=== PATIENT | female | born 1945 | race Two or more races ===

== ENCOUNTER 2025-01-26 22:13 | Inpatient (IN) | payer MEDICARE, MEDICAID ==
[~2025-01-26] VITALS: Ht 172.7 cm; Wt 46.9 kg
--- NOTE | 2025-01-26 23:22 | ED.PDOC ---
History of Present Illness HPI Comments 79 y/o F is BIBA for c/c nonradiating, lower abdominal pain, with associated nausea and vomiting. Patient reports history of symptoms since 0800, this morning. Onset reported to have been atraumatic, unprovoked, and gradual. Patient states on calling her PCP regarding symptoms and being prescribed Zofran, which she reports on taking with no relief or improvement towards it. Pain is a 10/10 in severity. Patient denies having any bloody or bilious vomitus, diarrhea, constipation, urinary symptoms, fever, chills, or further associated symptoms. 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 Past Medical History PAST MEDICAL HISTORY: DM (type II), HTN Surgical History: Denies all surgeries MARKETING REPORTING ANALYST History: Denies all MARKETING REPORTING ANALYST Hx Family History Family History: Unknown Social History Smoker: Non-Smoker Alcohol: Denies ETOH Use Drugs: Denies Drug Use Lives In: Home All Other Systems: Reviewed and Negative (Comprehensive systems review obtained and negative except for what is stated in the HPI.) Physical Exam General Appearance: No Apparent Distress, Thin HEENT: Normal ENT Inspection, Pharynx Normal, TMs Normal Neck: Full Range of Motion, Non-Tender, Normal, Normal Inspection Respiratory: Chest Non-Tender, Lungs Clear, No Accessory Muscle Use, No Respiratory Distress, Normal Breath Sounds Cardiovascular: No Edema, No JVD, No Murmur, No Gallop, Normal Peripheral Pulses, Regular Rate/Rhythm Breast Exam: Deferred Gastrointestinal: No Organomegaly, No Pulsatile Mass, Normal Bowel Sounds, Soft, Tenderness (diffused, lower abdomen region ) Genitalia: Deferred Pelvic: Deferred Rectal: Deferred Extremities: No calf tenderness, Normal capillary refill, Normal inspection, Normal range of motion, Non-tender, No pedal edema Musculoskeletal : Apperance: Normal Neurologic: Alert, manager lsw II-XII nml as Tested, No Motor Deficits, Normal Affect, Normal Mood, No Sensory Deficits Cerebellar Function: Normal Reflexes: Normal Skin: Dry, Normal Color, Warm Lymphatic: No Adenopathy Was a procedure done? Was a procedure done?: No Differential Dx Considerations may include: Bowel obstruction, cystitis, PID, diverticulitis, musculoskeletal pain, spoiled food, viral syndrome, among others X-Ray, Labs, Meds, VS Vital Signs Date Time Temp Pulse Resp B/P (MAP) Pulse Ox O2 Delivery O2 Flow Rate FiO2 01/27/25 00:17 99.3 74 14 151/75 (100) 94 99.3 01/26/25 22:16 98.5 76 16 174/70 (104) 95 98.5 Lab Test 01/26/25 23:10 Range/Units White Blood Count 11.4 H 4.4-10.8 10^3/uL Red Blood Count 4.99 4.0-5.20 10^6/uL Hemoglobin 15.4 12.2-16.2 g/dL Hematocrit 43.8 36.0-46.0 % Mean Corpuscular Volume 87.8 80.0-100.0 fL Mean Corpuscular Hemoglobin 30.9 28.0-32.0 pg Mean Corpuscular Hemoglobin Concent 35.2 32.0-36.0 g/dL Red Cell Distribution Width 13.9 11.8-14.3 % Platelet Count 261 140-450 10^3/uL Mean Platelet Volume 9.4 6.9-10.8 fL Neutrophils (%) (Auto) 86.5 H 37.0-80.0 % Lymphocytes (%) (Auto) 8.0 L 10.0-50.0 % Monocytes (%) (Auto) 5.0 0.0-12.0 % Eosinophils (%) (Auto) 0.0 0.0-7.0 % Basophils (%) (Auto) 0.5 0.0-2.0 % Neutrophils # (Auto) 9.8 H 1.6-8.6 10 ^3/uL Lymphocytes # (Auto) 0.9 0.4-5.4 10 ^3/uL Monocytes # (Auto) 0.6 0-1.3 10 ^3/uL Eosinophils # (Auto) 0 0-0.8 10 ^3/uL Basophils # (Auto) 0.1 0-0.2 10 ^3/uL Nucleated Red Blood Cells 0.0 % Sodium Level 137 136-145 mmol/L Potassium Level 3.9 3.5-5.1 mmol/L Chloride Level 93 L 98-107 mmol/L Carbon Dioxide Level 32 H 20-31 mmol/L Anion Gap 12 5-15 Blood Urea Nitrogen 23 9-23 mg/dL Creatinine 0.78 0.550-1.02 mg/dL Glomerular Filtration Rate Calc 76 >90 mL/min BUN/Creatinine Ratio 29.5 H 10.0-20.0 Serum Glucose 269 H 74-106 mg/dL Calcium Level 10.5 H 8.7-10.4 mg/dL Total Bilirubin 0.7 0.2-1.0 mg/dL Aspartate Amino Transferase (AST) 22 13-40 U/L Alanine Aminotransferase (ALT) < 9 7-40 U/L Alkaline Phosphatase 113 46-116 U/L Total Protein 7.6 5.7-8.2 g/dL Albumin 5.1 H 3.2-4.8 g/dL Lipase 36 12-53 U/L X-Ray, Labs, Meds, VS Comment CT abdomen pelvis shows small bowel obstruction Patient will be admitted for small-bowel obstruction, Order placed for intermittent suction Patient placed NPO Recommend general surgery consult in the morning Time of 1ST Reevaluation: 23:00 Reevaluation 1ST: Unchanged Patient Education/Counseling: Diagnosis, Treatment Family Education/Counseling: No Family Present Additional Information Previous visits reviewed: N/A The following tests were ordered, and results were reviewed by me: CT abdomen /pelvis w/o contrast, UA, CMP, CBC, lipase Additional Information was gathered from interviewing the following independent historians: EMS I reviewed and agreed with the following test results read by other providers: CT abdomen/pelvis w/o contrast I discussed treatment and results with medical personnel and: patient SEPSIS Sepsis Screen Date sepsis recognized/suspect: Jan 26, 2025 Time Sepsis recognized/suspect: 2215 Recent Procedure: No On Antibiotic Therapy: No Respiratory Rate >20: No Heart Rate >90: No Temp<36 C (96.8 F) or >38.3 C: No SBP <90 or MAP <65 mmHG: No New Acute Mental Status Change: No Is the patient on CPAP, BIPAP,: No Physician Orders Urinalysis (01/26/25 22:40) Ct Ab Pel Wo Con-No Oral Or Iv (01/26/25 22:40) Vital Signs Date Time Temp Pulse Resp B/P (MAP) Pulse Ox O2 Delivery O2 Flow Rate FiO2 01/27/25 00:17 99.3 74 14 151/75 (100) 94 99.3 01/26/25 22:16 98.5 76 16 174/70 (104) 95 98.5 Laboratory Tests Test 01/26/25 23:10 White Blood Count 11.4 10^3/uL (4.4-10.8) H Departure 1 Departure Time of Disposition: 01:16 Impression: Primary Impression: Small bowel obstruction Disposition: ADMITTED INPATIENT Condition: Fair Discharged With: Self Critical Care Note Critical Care Time?: No Stability Stability form required: No Heart Score Heart Score: Heart Score Response (Comments) Value History N/A 0 EKG N/A 0 Age N/A 0 Risk Factors N/A 0 Troponin N/A 0 Total 0 I personally scribed for KEITH ANDREA ([email or web address]) on 01/26/25 at 23:22. Electronically submitted by Rodney Barrett ([email or web address]). KEITH ANDREA Jan 26, 2025 23:22
--- NOTE | 2025-01-26 23:28 | DVH ---
Exam: CT CT AB PEL WO CON-NO ORAL OR IV History: abd pain Comparison Study: None TECHNIQUE: Multidetector CT of the abdomen was performed from lung bases to pubic symphysis. Imaging was performed without IV contrast. Axial, coronal and sagittal multiplanar reformats were obtained fr om the axial data set by the technologist. Radiation Dose Information: Dose-length product is 279.99 mGy*cm FINDINGS: Limited sections of the lung bases demonstrate no focal pulmonary mass. The liver, spleen, pancreas demonstrate no acute findings. Right adrenal gland nodule measuring 2.1 x 1.5 cm. The left adrenal gland is unremarkable. The gallbladder is contains calcified gallstones with question mild gallbladder wall thickening. The stomach is unremarkable. Dilated small bowel loops measuring up to 3.2 cm with scattered fluid air levels. No definite transit ion point is identified although possibly within the right hemiabdomen. Stool is noted within the col on although not distended. Overall, findings suggestive of moderate small bowel obstruction. The appendix is not clearly identified, although there are no secondary signs of appendicitis. No colonic obstruction. Bilateral kidneys are unremarkable. No hydronephrosis. The urinary bladder is distended. No significant lymphadenopathy. No free air or free fluid. The aorta and IVC demonstrate no acute findings. Mild dilation of the distal abdominal aorta up to 2. 5 cm. Extensive atherosclerosis of the abdominal vasculature. Visualized osseous structures demonstrate no acute abnormality. Extensive multilevel degenerative francesco nges of the lumbar spine. IMPRESSION: 1. Moderate small-bowel obstruction without clear identifiable transition point although possibly wit hin the right hemiabdomen. 2. The gallbladder is contains calcified gallstones with question mild gallbladder wall thickening ; consider right upper quadrant ultrasound if there is concern for acute cholecystitis. 3. Right adrenal gland nodule measuring 2.1 x 1.5 cm.
[2025-01-26 23:29] LABS: Hematocrit 43.8 % (36.0-46.0); Hemoglobin 15.4 g/dL (12.2-16.2); Mean Corpuscular Hemoglobin 30.9 pg (28.0-32.0); Mean Corpuscular Volume 87.8 fL (80.0-100.0); Nucleated Red Blood Cells % 0.0 %
[2025-01-26 23:46] LABS: Alkaline Phosphatase 113 U/L (46-116); Anion Gap 12 (5-15); BUN/Creatinine Ratio 29.5 (10.0-20.0); Bilirubin, Total 0.7 mg/dL (0.2-1.0); Blood Urea Nitrogen 23 mg/dL (9-23); Lipase 36 U/L (12-53); Potassium 3.9 mmol/L (3.5-5.1); Sodium 137 mmol/L (136-145); Total Protein 7.6 g/dL (5.7-8.2)
[2025-01-26 23:51] LABS: Alanine Aminotransferase < 9 U/L (7-40); Albumin 5.1 g/dL (3.2-4.8); Calcium 10.5 mg/dL (8.7-10.4); Carbon Dioxide 32 mmol/L (20-31); Chloride 93 mmol/L (98-107); Glucose 269 mg/dL (74-106)
[2025-01-27 01:47] LABS: Urine Protein, UAD 1+ (Negative)
[2025-01-27 02:00] VITALS: PULSE 77; RESP 12; O2SAT 96
[2025-01-27] MEDS: hydrALAZINE HCL 20 MG/ML VL IV ONE (02:26)
--- NOTE | 2025-01-27 03:19 | DVHHP2 ---
History of Present Illness History of Present Illness Patient is 79 years old female with past medical history of hypertension, diabetes mellitus type 2 came with a complaint of abdominal pain. As per patient she has been having abdominal pain started 2 days before, gradual onset, burning, crampy, 10/10, intermittent, no aggravating factor. Patient also endorsed nausea and vomiting several times, watery, no blood. Patient reported she had bowel movement yesterday. On further inquiry patient also reported dysuria for last 2 days. Patient denied any fever, chest pain, shortness of breath, acute joint pain or swelling. Initial lab workup revealed leukocytosis with WBC 11.4, neutrophil 86.5, blood sugar 269, lipase 36, urinalysis revealed 3+ leukocyte esterase, WBC 42. CT abdomen and pelvis revealed- Moderate small- bowel obstruction without clear identifiable transition point although possibly within the right hemiabdomen. The gallbladder is contains calcified gallstones with question mild gallbladder wall thickening ; consider right upper quadrant ultrasound if there is concern for acute cholecystitis. Right adrenal gland nodule measuring 2.1 x 1.5 cm. Past Medical History Hypertension, diabetes mellitus type 2 Past Surgical History None Past Social History Denies smoking/alcoholism/drug abuse, lives with son Review of Systems Review of Systems Allergy-PCN Patient was seen today at the bedside. Cardiovascular- deny acute chest pain or shortness of breath or cough or palpitation Respiratory denies cough or short of breath or wheezing Musculoskeletal-denies acute joint swelling or tenderness or redness Neurological- denies acute dysarthria, dysphagia, change in vision Psychiatry- denies depression or SI or HI Skin- denies acute rash or purpura Allergies: Coded Allergies: Penicillins (Verified Allergy, Unknown, 01/26/25) Exam Vital Signs Vital Signs Date Time Temp Pulse Resp B/P (MAP) Pulse Ox O2 Delivery O2 Flow Rate FiO2 01/27/25 02:26 197/84 01/27/25 02:00 98.6 77 12 96 98.6 01/27/25 02:00 Room Air* 0 21 Exam General examination- awake, alert, conversant HEENT- PEERLA, no acute nasal discharge Cardiovascular- S1-S2 audible, rate and rhythm regular, no murmur Respiratory- CTAB, no wheeze or rhonchi Gastrointestinal-soft, tender upper abdomen, bowel sound+. Nondistended Musculoskeletal-no acute joint swelling or tenderness or redness Lower extremity- leg edema Neurological- cranial nerves intact, no acute dysarthria or dysphagia Psychiatry- denies depression or SI or HI Skin- no acute rash or purpura Labs/Xrays Labs Test 01/26/25 23:59 01/26/25 23:10 Range/Units Urine Color Yellow Yellow Urine Clarity Clear Clear Urine pH 6.5 5.0-9.0 Urine Specific Parker 1.036 H 1.001-1.035 Urine Protein 1+ H Negative Urine Ketones 2+ H Negative Urine Blood Negative Negative /uL Urine Nitrite Negative Negative Urine Bilirubin Negative Negative Urine Urobilinogen Normal Negative mg/dL Urine Leukocyte Esterase 3+ Negative /uL Urine RBC 8 0 - 4 /hpf Urine Microscopic WBC 42 H 0-5 /HPF Urine Squamous Epithelial Cells Few <5 /hpf Urine Bacteria None seen None Seen /hpf Urine Hyaline Casts Mod 0 - 2 /lpf Urine Mucus Few None Seen Urine Glucose 4+ H Normal mg/dL White Blood Count 11.4 H 4.4-10.8 10^3/uL Red Blood Count 4.99 4.0-5.20 10^6/uL Hemoglobin 15.4 12.2-16.2 g/dL Hematocrit 43.8 36.0-46.0 % Mean Corpuscular Volume 87.8 80.0-100.0 fL Mean Corpuscular Hemoglobin 30.9 28.0-32.0 pg Mean Corpuscular Hemoglobin Concent 35.2 32.0-36.0 g/dL Red Cell Distribution Width 13.9 11.8-14.3 % Platelet Count 261 140-450 10^3/uL Mean Platelet Volume 9.4 6.9-10.8 fL Neutrophils (%) (Auto) 86.5 H 37.0-80.0 % Lymphocytes (%) (Auto) 8.0 L 10.0-50.0 % Monocytes (%) (Auto) 5.0 0.0-12.0 % Eosinophils (%) (Auto) 0.0 0.0-7.0 % Basophils (%) (Auto) 0.5 0.0-2.0 % Neutrophils # (Auto) 9.8 H 1.6-8.6 10 ^3/uL Lymphocytes # (Auto) 0.9 0.4-5.4 10 ^3/uL Monocytes # (Auto) 0.6 0-1.3 10 ^3/uL Eosinophils # (Auto) 0 0-0.8 10 ^3/uL Basophils # (Auto) 0.1 0-0.2 10 ^3/uL Nucleated Red Blood Cells 0.0 % Sodium Level 137 136-145 mmol/L Potassium Level 3.9 3.5-5.1 mmol/L Chloride Level 93 L 98-107 mmol/L Carbon Dioxide Level 32 H 20-31 mmol/L Anion Gap 12 5-15 Blood Urea Nitrogen 23 9-23 mg/dL Creatinine 0.78 0.550-1.02 mg/dL Glomerular Filtration Rate Calc 76 >90 mL/min BUN/Creatinine Ratio 29.5 H 10.0-20.0 Serum Glucose 269 H 74-106 mg/dL Calcium Level 10.5 H 8.7-10.4 mg/dL Total Bilirubin 0.7 0.2-1.0 mg/dL Aspartate Amino Transferase (AST) 22 13-40 U/L Alanine Aminotransferase (ALT) < 9 7-40 U/L Alkaline Phosphatase 113 46-116 U/L Total Protein 7.6 5.7-8.2 g/dL Albumin 5.1 H 3.2-4.8 g/dL Lipase 36 12-53 U/L SEPSIS Sepsis Screen Date sepsis recognized/suspect: Jan 27, 2025 Time Sepsis recognized/suspect: 232 Recent Procedure: No On Antibiotic Therapy: No Respiratory Rate >20: No Heart Rate >90: No Temp<36 C (96.8 F) or >38.3 C: No SBP <90 or MAP <65 mmHG: No New Acute Mental Status Change: No Is the patient on CPAP, BIPAP,: No Physician Orders Ct Ab Pel Wo Con-No Oral Or Iv (01/26/25 22:40) Ng To Lis (01/27/25 02:40) * Surgical Consult (01/27/25 ) Admit (01/27/25 03:17) 0.9% Ns 1000 Ml (01/27/25 03:30) Ondansetron Hcl (Zofran) (01/27/25 03:30) Vital Signs Date Time Temp Pulse Resp B/P (MAP) Pulse Ox O2 Delivery O2 Flow Rate FiO2 01/27/25 02:26 197/84 01/27/25 02:00 98.6 77 12 202/86 (124) 96 98.6 01/27/25 02:00 77 12 96 Room Air* 0 21 01/27/25 00:17 99.3 74 14 151/75 (100) 94 99.3 01/26/25 22:16 98.5 76 16 174/70 (104) 95 98.5 Laboratory Tests Test 01/26/25 23:10 White Blood Count 11.4 10^3/uL (4.4-10.8) H Medications Medications Dose Ordered Sig/Cody Route Start Time Stop Time Status Last Admin Dose Admin Hydralazine HCl 10 mg ONCE ONCE IV 01/27/25 02:30 01/27/25 02:31 DC 01/27/25 02:26 10 MG Assessment/Plan Assessment/Plan Assessment plan # Intractable abdominal pain likely due to small bowel obstruction, rule out acute cholecystitis/pancreatitis/gastritis # Small-bowel obstruction # intractable nausea and vomiting -lipase 36 -CT abdomen pelvis revealed-Moderate small-bowel obstruction without clear identifiable transition point although possibly within the right hemiabdomen. -NPO until further order -continue IV normal saline as prescribed -continue iv ceftriaxone and iv metronidazole as prescribed -pending surgery consult -ultrasound of the liver- Cholelithiasis with distended gallbladder. No sonographic evidence for acute cholecystitis. -nasogastric suction #Acute complicated cystitis -urinalysis revealed leukocyte esterase 3+, WBC 42 -continue IV antibiotic ceftriaxone -pending urine culture, blood culture #Uncontrolled hypertension -continue IV hydralazine PRN as prescribed -monitor blood pressure # Diabetes mellitus type 2 with hyperglycemia -hemoglobin A1c-7.2 -insulin NPO sliding scale # right renal nodule -follow up outpatient with primary care physician NPO until further order Goals of care, Code status full code; discussed with >15 minutes PUD prophylaxis: Pantoprazole DVT prophylaxis: Heparin Plan discussed with Dr. Colón , nursing staff, Total time spent on patient evaluation, chart review, assessment and plan, discussion discussion >35 minutes Plan discussed with: Patient, Other (RN) My Orders Orders - DREA HICKMAN RESIDENT Procedure Category Date Status Time Admit ADMIT 01/27/25 Verified 03:17 0.9% Ns 1000 Ml PHA 01/27/25 Verified 03:30 Ondansetron Hcl PHA 01/27/25 Verified (Zofran) 03:30 Date of Service: Jan 27, 2025 Billing Provider: JET COLÓN MD Common Visit Codes: 79696-PLEWIOR INP/OBS CARE (HIGH) Secondary Visit Codes: 48113-PIZHQIHO CARE PLAN 30 MINUTES DREA HICKMAN RESIDENT Jan 27, 2025 03:19
[2025-01-27] MEDS ORDERED: PANTOPRAZOLE 40 MG/10 ML VIAL INJ IV ONE (03:30)
[2025-01-27] MEDS ORDERED: SODIUM CHLORIDE 0.9% 1,000 ML IV ONE (03:30)
[2025-01-27] MEDS ORDERED: KETOROLAC TROMETH 30 MG/ML 1ML VIAL IV PRN (03:30)
[2025-01-27] MEDS ORDERED: cefTRIAXone 1GM/50ML D5W 50 ML IV ONE (03:30)
[2025-01-27] MEDS: PANTOPRAZOLE 40 MG/10 ML VIAL INJ IV ONE (03:58)
[2025-01-27] MEDS: SODIUM CHLORIDE 0.9% 1,000 ML IV ONE (03:58)
[2025-01-27] MEDS: cefTRIAXone 1GM/50ML D5W 50 ML IV ONE (03:59)
[2025-01-27] MEDS: ONDANSETRON HCL 4 MG/2 ML VIAL IV PRN (04:13)
[2025-01-27] MEDS: ONDANSETRON HCL 4 MG/2 ML VIAL ONE (04:16)
--- NOTE | 2025-01-27 04:48 | DVH ---
CHEST RADIOGRAPH Indication: NG PLACEMENT Technique: Single frontal view of the chest was obtained COMPARISON: None FINDINGS: Lines and Tubes: Enteric catheter courses below the level of the diaphragm and terminates within the left upper quadrant, within the gastric lumen. Lungs: Clear Pleura: No effusion. No pneumothorax. Cardiomediastinal contours: Unremarkable Bones: Unremarkable IMPRESSION: 1. No acute disease. 2. Enteric catheter as above.
[2025-01-27] MEDS: SODIUM CHLORIDE 0.9% 1,000 ML IV SCH (04:56)
[2025-01-27] MEDS ORDERED: DEXTROSE (50%) 50ML SYRG IV PRN (05:30)
[2025-01-27] MEDS: ACCU-CHEK COMFORT CURVE STRIP VI SCH (05:38)
[2025-01-27] MEDS: MAGNESIUM SULFATE 1GM/100ML 100 ML IV ONE (05:47)
[2025-01-27] MEDS: InsuLIN REG 1unit/0.01ml Soln (100units/ml) SC SCH (05:49)
[2025-01-27 06:48] LABS: Hematocrit 42.4 % (36.0-46.0); Hemoglobin 14.8 g/dL (12.2-16.2); Mean Corpuscular Hemoglobin 30.8 pg (28.0-32.0); Mean Corpuscular Volume 88.3 fL (80.0-100.0); Nucleated Red Blood Cells % 0.0 %
[2025-01-27 07:02] LABS: Albumin 4.5 g/dL (3.2-4.8); Alkaline Phosphatase 98 U/L (46-116); Anion Gap 12 (5-15); BUN/Creatinine Ratio 29.0 (10.0-20.0); Bilirubin, Total 0.6 mg/dL (0.2-1.0); Blood Urea Nitrogen 20 mg/dL (9-23); Calcium 9.9 mg/dL (8.7-10.4); Magnesium 1.9 mg/dL (1.6-2.6); Sodium 140 mmol/L (136-145); Total Protein 6.9 g/dL (5.7-8.2)
[2025-01-27 07:07] LABS: Alanine Aminotransferase < 9 U/L (7-40); Carbon Dioxide 32 mmol/L (20-31); Chloride 96 mmol/L (98-107); Glucose 229 mg/dL (74-106); Potassium 3.2 mmol/L (3.5-5.1)
[2025-01-27 07:30] VITALS: PULSE 75; RESP 17; O2SAT 96
--- NOTE | 2025-01-27 07:54 | DVH ---
CLINICAL INFORMATION: Abdominal pain. TECHNIQUE: Grayscale sonographic imaging of the right upper quadrant of the abdomen was performed, a ssisted by color Doppler techniques. COMPARISON: CT dated 01/27/2025. FINDINGS: The gallbladder wall measures 2.6 mm in thickness, within normal limits. Gallbladder is distended. There are shadowing gallstones in the gallbladder, with the largest measuring up to 2.5 cm . Negative reported sonographic Crews's sign. The common bile duct measures 4.7 mm in diameter, wit hin normal limits. The liver is normal in size and echotexture. No focal lesions. Trace amount of fluid in Morison's amrita ch between the right hepatic lobe and right kidney. The pancreas is obscured by bowel gas. The right kidney measures 10.4 cm. There is no hydronephrosis. Right renal cortical echogenicity a nd cortical thickness are within normal limits. IMPRESSION: 1. Cholelithiasis with distended gallbladder. No sonographic evidence for acute cholecystitis. Correl ate with clinical findings. 2. Additional findings as described above.
[2025-01-27] MEDS: POTASSIUM CHL 20MEQ/100ML 100 ML IV SCH (08:53)
[2025-01-27] MEDS ORDERED: cefTRIAXone 1GM/50ML D5W 50 ML IV SCH (09:00)
[2025-01-27] MEDS: cefTRIAXone 1GM/50ML D5W 50 ML IV SCH (09:28)
[2025-01-27] MEDS: INSULIN LANTUS (GLARGINE) 1 /0.01ml (100units/ml) SC SCH (09:37)
[2025-01-27] MEDS ORDERED: PANTOPRAZOLE 40 MG/10 ML VIAL INJ IV SCH (10:00)
[2025-01-27] MEDS ORDERED: HEPARIN SODIUM (PORCINE) 5000 UNITS/ML 1ML VIAL SC SCH (10:00)
[2025-01-27] MEDS: PANTOPRAZOLE 40 MG/10 ML VIAL INJ IV SCH (10:15)
[2025-01-27] MEDS: HEPARIN SODIUM (PORCINE) 5000 UNITS/ML 1ML VIAL SC SCH (10:17)
[2025-01-27] MEDS: GASTROGRAFIN 120 ML SOL ONE (13:04)
--- NOTE | 2025-01-27 14:10 | DVHINCON2 ---
Date of service: Jan 27, 2025 Reason for Consultation small bowel obstruction History of Present Illness HPI 79 year old female presented to the ER with abdominal pain. Per CT small moderated bowel obstruction. Patient complaint of abdominal pain associated with vomiting. Last bowel movement yesterday, passing gas, She states she vomited earlier today. Past Medical History Cardiac: HTN Pulmonary: No pertinent Hx Central Nervous System: No pertinent Hx GI: No pertinent Hx Hemotology/Oncology: No pertinent Hx Hepatobiliary: No pertinent Hx Psychiatric: No pertinent Hx Musculoskeletal: No pertinent Hx Rheumotologic: No pertinent Hx Infectious Disease: No peritnent Hx ENT: No pertinent Hx Renal/: No pertinent Hx Dermatology: No pertinent Hx Others Diabetes Smoker: No Hx (Negative) Alocohol: None Drugs: None Lives with: With family Review of Systems Constitutional: No symptom reported Ears, Nose, & Throat: No symptom reported Eyes: No symptom reported Pulmonary/Respiratory: No symptom reported Cardiovascular: No symptom reported Gastrointestinal: No symptom reported Genitourinary: No symptom reported Musculoskeletal: No symptom reported Skin: No symptom reported Psychiatric: No symptom reported Endocrine: No symptom reported Hemotologic/Lymphatic: No symptom reported H&P Exam Vital Signs Vital Signs Date Time Temp Pulse Resp B/P (MAP) Pulse Ox O2 Delivery O2 Flow Rate FiO2 01/27/25 13:16 Nasal Cannula* 2 28 01/27/25 12:00 98.6 88 20 138/75 (96) 97 98.6 General Appeara: Well developed, Well nourished Head Exam: Normal inspection Nasal Exam: Normal inspection Mouth: Normal Inspection Abdominal Pain Onset Location: 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 Exam: Normal hearing, Normal speech Appearance: Appropriate appearance Labs/Xrays Labs Test 01/27/25 11:58 01/27/25 08:54 01/27/25 05:59 01/27/25 04:42 Range/Units POC Glucose 146 H 70-106 mg/dl Lipase 43 12-53 U/L White Blood Count 10.7 4.4-10.8 10^3/uL Red Blood Count 4.80 4.0-5.20 10^6/uL Hemoglobin 14.8 12.2-16.2 g/dL Hematocrit 42.4 36.0-46.0 % Mean Corpuscular Volume 88.3 80.0-100.0 fL Mean Corpuscular Hemoglobin 30.8 28.0-32.0 pg Mean Corpuscular Hemoglobin Concent 34.8 32.0-36.0 g/dL Red Cell Distribution Width 13.8 11.8-14.3 % Platelet Count 253 140-450 10^3/uL Mean Platelet Volume 9.6 6.9-10.8 fL Neutrophils (%) (Auto) 88.2 H 37.0-80.0 % Lymphocytes (%) (Auto) 6.4 L 10.0-50.0 % Monocytes (%) (Auto) 5.2 0.0-12.0 % Eosinophils (%) (Auto) 0.0 0.0-7.0 % Basophils (%) (Auto) 0.2 0.0-2.0 % Neutrophils # (Auto) 9.4 H 1.6-8.6 10 ^3/uL Lymphocytes # (Auto) 0.7 0.4-5.4 10 ^3/uL Monocytes # (Auto) 0.6 0-1.3 10 ^3/uL Eosinophils # (Auto) 0 0-0.8 10 ^3/uL Basophils # (Auto) 0 0-0.2 10 ^3/uL Nucleated Red Blood Cells 0.0 % Sodium Level 140 136-145 mmol/L Potassium Level 3.2 L 3.5-5.1 mmol/L Chloride Level 96 L 98-107 mmol/L Carbon Dioxide Level 32 H 20-31 mmol/L Anion Gap 12 5-15 Blood Urea Nitrogen 20 9-23 mg/dL Creatinine 0.69 0.550-1.02 mg/dL Glomerular Filtration Rate Calc 87 >90 mL/min BUN/Creatinine Ratio 29.0 H 10.0-20.0 Serum Glucose 229 H 74-106 mg/dL Lactic Acid Level 1.9 0.4-2.0 mmol/L Calcium Level 9.9 8.7-10.4 mg/dL Magnesium Level 1.9 1.6-2.6 mg/dL Total Bilirubin 0.6 0.2-1.0 mg/dL Aspartate Amino Transferase (AST) 20 13-40 U/L Alanine Aminotransferase (ALT) < 9 7-40 U/L Alkaline Phosphatase 98 46-116 U/L Total Protein 6.9 5.7-8.2 g/dL Albumin 4.5 3.2-4.8 g/dL Thyroid Stimulating Hormone (TSH) 2.12 0.55-4.78 uIU/mL Test 01/26/25 23:59 01/26/25 23:10 Range/Units Urine Color Yellow Yellow Urine Clarity Clear Clear Urine pH 6.5 5.0-9.0 Urine Specific [place] 1.036 H 1.001-1.035 Urine Protein 1+ H Negative Urine Ketones 2+ H Negative Urine Blood Negative Negative /uL Urine Nitrite Negative Negative Urine Bilirubin Negative Negative Urine Urobilinogen Normal Negative mg/dL Urine Leukocyte Esterase 3+ Negative /uL Urine RBC 8 0 - 4 /hpf Urine Microscopic WBC 42 H 0-5 /HPF Urine Squamous Epithelial Cells Few <5 /hpf Urine Bacteria None seen None Seen /hpf Urine Hyaline Casts Mod 0 - 2 /lpf Urine Mucus Few None Seen Urine Glucose 4+ H Normal mg/dL Hemoglobin A1c 7.2 H <5.7 % A1C Vitamin D 25-Hydroxy 76.0 30.0-100 ng/mL Folic Acid 31.95 >5.38 ng/mL Assessment/Plan Problem List: (1) Small bowel obstruction Plan patient complaint of abdominal pain , abdomen soft , tender to palpation , non tender ruq denies nausea and vomiting , notes and labs reviewed discussed with Dr. Harmon Plan: NPO NGT to LCS await Small bowel series Gastrografin Plan discussed with: Patient, Other (Dr. Harmon) Visit Coding Surgery Date of Service if different f: Jan 27, 2025 Billing Provider: FILOMENA HARMON MD Surgery Visit Codes: 13824 - INP CONSULT <110 MIN BETHANY MORTON BOLT MAN Jan 27, 2025 14:10
[2025-01-27] MEDS: KETOROLAC TROMETH 30 MG/ML 1ML VIAL IV PRN (15:33)
[2025-01-27] MEDS: hydrALAZINE HCL 20 MG/ML VL IV PRN (15:41)
--- NOTE | 2025-01-27 16:33 | DVHPNRES ---
Progress Note Date Seen: Jan 27, 2025 Resident Creating Document: MADI LIAO RESIDENT Medical Necessity Reason Pt with a Central, PICC or Fol: No Subjective Review of Systems Patient is 79 years old female with past medical history of hypertension, diabetes mellitus type 2 came with a complaint of abdominal pain. As per patient she has been having abdominal pain started 2 days before, gradual onset, burning, crampy, 10/10, intermittent, no aggravating factor. Patient also endorsed nausea and vomiting several times, watery, no blood. Patient reported she had bowel movement yesterday. On further inquiry patient also reported dysuria for last 2 days. Patient denied any fever, chest pain, shortness of breath, acute joint pain or swelling. Initial lab workup revealed leukocytosis with WBC 11.4, neutrophil 86.5, blood sugar 269, lipase 36, urinalysis revealed 3+ leukocyte esterase, WBC 42. CT abdomen and pelvis revealed- Moderate small- bowel obstruction without clear identifiable transition point although possibly within the right hemiabdomen. The gallbladder is contains calcified gallstones with question mild gallbladder wall thickening ; consider right upper quadrant ultrasound if there is concern for acute cholecystitis. Right adrenal gland nodule measuring 2.1 x 1.5 cm. Past Medical History Hypertension, diabetes mellitus type 2 Past Surgical History None Past Social History Denies smoking/alcoholism/drug abuse, lives with son 01/25 interval events: The patient reports her upper abdominal pain improved since yesterday. Reports having urinary frequency urgency and burning sensation. He denies any chest pain, fever shortness of breath or any other complaints at this time. Review of systems: The patient was seen and examined at the bedside. Patient is reveals abdominal pain and urinary symptoms. Rest of the ROS is negative. Objective vital signs Vital Sign Date Time Temp Pulse Resp B/P (MAP) Pulse Ox O2 Delivery O2 Flow Rate FiO2 01/27/25 15:41 167/84 01/27/25 14:00 98.6 81 16 97 98.6 01/27/25 13:16 Nasal Cannula* 2 28 Total Intake and Output 01/26/25 01/26/25 01/27/25 15:00 23:00 07:00 Intake Total 1270 ml Output Total 50 ml 350 ml Balance -50 ml 920 ml medications Current Medications Medications Dose Ordered Sig/Cody Route Start Time Stop Time Status Last Admin Dose Admin Sodium Chloride 1,000 ml @ 120 mls/hr Q8H20M IV 01/27/25 03:30 01/27/25 11:55 120 MLS/HR Ondansetron HCl 4 mg Q4HP PRN IV 01/27/25 03:30 01/27/25 04:13 4 MG Hydralazine HCl 10 mg Q6HP PRN IV 01/27/25 03:30 01/27/25 15:41 10 MG Pantoprazole Sodium 40 mg DAILY IV 01/27/25 10:00 01/27/25 10:15 40 MG Ketorolac Tromethamine 15 mg Q6HPRN PRN IV 01/27/25 03:45 02/01/25 03:29 01/27/25 15:33 15 MG Ceftriaxone Sodium 50 ml @ 100 mls/hr DAILY@09 IV 01/27/25 09:00 01/27/25 09:28 100 MLS/HR Heparin Sodium (Porcine) 5,000 units Q12HR SC 01/27/25 10:00 01/27/25 10:17 5,000 UNITS Diagnostic Test (Pha) 1 strip Q6HR 01/27/25 06:00 01/27/25 12:02 1 STRIP Insulin Human Regular Q6HR SC 01/27/25 06:00 01/27/25 12:01 2 UNITS Dextrose 50 ml UD PRN IV 01/27/25 05:30 Metronidazole 100 ml @ 100 mls/hr Q8HR IV 01/27/25 13:00 01/27/25 14:27 100 MLS/HR Insulin Glargine 10 units QAM SC 01/27/25 09:00 01/27/25 09:37 10 UNITS Examination General Appearance: NG tube with intermittent suction in place. Alert, Oriented X3, Cooperative, Mild distress HEENT: Atraumatic, Mucous membranes moist/pink Respiratory: Clear to auscultation, Normal air movement, No added sounds Cardiovascular: Regular rate, Normal S1, Normal S2, No murmurs Abdominal/ : No bowel sounds, Soft, no distention, no tenderness Extremities: No edema, Normal pulses, No tenderness/swelling Skin: No Significant rash, except past surgical scars Neuro: Normal speech, sensorimotor deficits none Psych/Mental Status: Mental status NL, Mood NL Nurse was there as trauma doctor during examination laboratory and microbiology Laboratory Tests 01/27/25 05:59 Test 01/27/25 05:59 Range/Units Serum Glucose 229 H 74-106 mg/dL Labs and/or images reviewed: Labs reviewed by me, Image(s) reviewed by me Problem List/Assessment/Plan Problem List/Assessment/Plan # Intractable abdominal pain likely due to small bowel obstruction, # Cholelithiasis rule out acute cholecystitis # Small-bowel obstruction -lipase 36 -CT abdomen pelvis revealed-Moderate small-bowel obstruction without clear identifiable transition point although possibly within the right hemiabdomen. 2. The gallbladder is contains calcified gallstones with question mild gallbladder wall thickening -ultrasound RUQ showed cholelithiasis with distended gallbladder but no sonographic evidence for acute cholecystitis -NPO until further order -continue IV normal saline as prescribed -continue iv ceftriaxone and iv metronidazole as prescribed -surgery consult was done: NG tube low continuous suction device, -Small-bowel series Gastrografin ordered, results pending -ultrasound of the liver- Cholelithiasis with distended gallbladder. No sonographic evidence for acute cholecystitis. -nasogastric suction #Acute complicated cystitis -urinalysis revealed leukocyte esterase 3+, WBC 42 -continue IV antibiotic ceftriaxone -pending urine culture, blood culture #Uncontrolled hypertension -continue IV hydralazine PRN as prescribed -monitor blood pressure # Diabetes mellitus type 2 with hyperglycemia -hemoglobin A1c-7.2 -insulin NPO sliding scale # right renal nodule -follow up outpatient with primary care physician NPO until further order PUD prophylaxis: Pantoprazole DVT prophylaxis: Heparin Goals of care, Code status full code; discussed with >15 minutes Case discussed with Dr. Rubi, patient and nurse Plan discussed with: Patient, Other (RN) My Orders My Orders Orders - MADI LIAO Procedure Category Date Status Time Small Bowel Series-W XY 01/27/25 Logged Gastrogra 08:54 Insulin Lantus PHA 01/27/25 In Process (Glargine) (Lantus) 09:00 Date of Service: Jan 27, 2025 Billing Provider: MONIK RUBI MD Common Visit Codes: NOT BILLABLE MADI LIAO Jan 27, 2025 16:33 HECTOR MALAGON Jan 27, 2025 17:08 MONIK RUBI MD Jan 27, 2025 21:53
--- NOTE | 2025-01-27 20:22 | DVH ---
Procedure: XY SMALL BOWEL SERIES-W GASTROGRA Reason for study/Clinical History: SBO Comparison Study: None Technique: Single contrast small bowel series performed. FINDINGS/IMPRESSION: Initial litigation coordinator view of the abdomen and pelvis demonstrates dilated small bowel loops. At 5 hours after administration, contrast has not reached the colon, consistent with small-bowel obstruction. There i s demineralization of the bones. There is no supine evidence of pneumoperitoneum.
[2025-01-27 21:09] LABS: Chloride 101 mmol/L (98-107); Potassium 4.1 mmol/L (3.5-5.1); Sodium 142 mmol/L (136-145)
[2025-01-27 21:10] LABS: Anion Gap 11 (5-15); Carbon Dioxide 30 mmol/L (20-31)
[2025-01-27 21:15] LABS: BUN/Creatinine Ratio 33.3 (10.0-20.0); Calcium 11.1 mg/dL (8.7-10.4)
[2025-01-27 21:19] LABS: Blood Urea Nitrogen 26 mg/dL (9-23); Glucose 164 mg/dL (74-106)
[2025-01-27 21:36] VITALS: BP 152/85; PULSE 85; RESP 14; TEMP 98.4; O2SAT 94
[2025-01-27] MEDS ORDERED: GABA-1250 PO (23:23)
[2025-01-27] MEDS ORDERED: LOSA-534 PO (23:23)
[2025-01-27] MEDS ORDERED: METF-370 PO (23:23)
[2025-01-27] MEDS ORDERED: DAPA1TAB4 PO (23:23)
[2025-01-27] MEDS ORDERED: DULO1CAP5 PO (23:23)
[2025-01-27] MEDS ORDERED: SIMV20TA20 PO (23:23)
[2025-01-28 01:00] VITALS: BP 168/100; PULSE 97; RESP 14; TEMP 98.1; O2SAT 99
[2025-01-28 05:00] VITALS: BP 150/90; PULSE 93; RESP 20; TEMP 98; O2SAT 93
[2025-01-28 06:41] LABS: Hematocrit 42.8 % (36.0-46.0); Hemoglobin 14.7 g/dL (12.2-16.2); Mean Corpuscular Hemoglobin 30.5 pg (28.0-32.0); Mean Corpuscular Volume 89.1 fL (80.0-100.0); Nucleated Red Blood Cells % 0.0 %
[2025-01-28 07:04] LABS: Albumin 4.8 g/dL (3.2-4.8); Alkaline Phosphatase 88 U/L (46-116); Anion Gap 14 (5-15); BUN/Creatinine Ratio 37.6 (10.0-20.0); Bilirubin, Total 0.6 mg/dL (0.2-1.0); Carbon Dioxide 29 mmol/L (20-31); Chloride 100 mmol/L (98-107); Potassium 3.8 mmol/L (3.5-5.1); Sodium 143 mmol/L (136-145); Total Protein 7.4 g/dL (5.7-8.2)
[2025-01-28 07:10] LABS: Alanine Aminotransferase < 9 U/L (7-40); Blood Urea Nitrogen 32 mg/dL (9-23); Calcium 11.0 mg/dL (8.7-10.4); Glucose 143 mg/dL (74-106)
[2025-01-28 09:00] VITALS: BP 145/81; PULSE 97; RESP 16; TEMP 98.5; O2SAT 95
[2025-01-28] MEDS: MORPHINE SULFATE INJ 2 MG/ml SYRG IV PRN (10:06)
--- NOTE | 2025-01-28 10:11 | DVHPN2 ---
Progress Note Date Seen: Jan 28, 2025 Medical Necessity Reason Pt with a Central, PICC or Fol: No Objective vital signs Vital Sign Date Time Temp Pulse Resp B/P (MAP) Pulse Ox O2 Delivery O2 Flow Rate FiO2 01/28/25 09:00 98.5 97 16 145/81 (102) 95 98.5 01/28/25 08:00 Nasal Cannula* 2 28 Total Intake and Output 01/27/25 01/27/25 01/28/25 15:00 23:00 07:00 Intake Total 100 ml 200 ml 0 ml Balance 100 ml 200 ml 0 ml medications Current Medications Medications Dose Ordered Sig/Cody Route Start Time Stop Time Status Last Admin Dose Admin Sodium Chloride 1,000 ml @ 120 mls/hr Q8H20M IV 01/27/25 03:30 01/27/25 20:20 120 MLS/HR Ondansetron HCl 4 mg Q4HP PRN IV 01/27/25 03:30 01/27/25 04:13 4 MG Hydralazine HCl 10 mg Q6HP PRN IV 01/27/25 03:30 01/28/25 01:08 10 MG Pantoprazole Sodium 40 mg DAILY IV 01/27/25 10:00 01/28/25 08:42 40 MG Ketorolac Tromethamine 15 mg Q6HPRN PRN IV 01/27/25 03:45 02/01/25 03:29 Hold 01/28/25 06:13 15 MG Ceftriaxone Sodium 50 ml @ 100 mls/hr DAILY@09 IV 01/27/25 09:00 01/28/25 08:42 100 MLS/HR Heparin Sodium (Porcine) 5,000 units Q12HR SC 01/27/25 10:00 01/28/25 08:43 5,000 UNITS Diagnostic Test (Pha) 1 strip Q6HR 01/27/25 06:00 01/28/25 06:23 1 STRIP Insulin Human Regular Q6HR SC 01/27/25 06:00 01/28/25 06:24 3 UNITS Dextrose 50 ml UD PRN IV 01/27/25 05:30 Metronidazole 100 ml @ 100 mls/hr Q8HR IV 01/27/25 13:00 01/28/25 06:02 100 MLS/HR Insulin Glargine 10 units QAM SC 01/27/25 09:00 01/28/25 06:24 10 UNITS Morphine Sulfate 1 mg Q4HP PRN IV 01/28/25 09:45 laboratory and microbiology Laboratory Tests 01/28/25 05:14 Test 01/28/25 05:14 Range/Units Serum Glucose 143 H 74-106 mg/dL Problem List/Assessment/Plan Problem List/Assessment/Plan 01/28/25 79 year old female with abdominal pain since yesterday, no prior operations, abdomen soft, non distended, non tender. Gasrtrografin indicates a possible bowel obstruction.judging from physical examination there is no need for an emergency surgical intervention. will follow Plan discussed with: Patient, Other FILOMENA NEELY MD Jan 28, 2025 10:11
[2025-01-28 11:08] LABS: Hepatitis B Surface Antigen Negative (Negative); Hepatitis C Antibody Negative (Negative)
[2025-01-28 13:00] VITALS: BP 167/78; PULSE 82; RESP 16; TEMP 98.3; O2SAT 96
--- NOTE | 2025-01-28 15:23 | DVHPNRES ---
Progress Note Date Seen: Jan 28, 2025 Resident Creating Document: MADI LIAO RESIDENT Medical Necessity Reason Pt with a Central, PICC or Fol: No Subjective Review of Systems The patient reports having upper abdominal right upper quadrant pain. She did not have any bowel movement. Patient denies any chest pain, shortness of breath, fever or any other complaints today. Review of systems: Patient was seen and examined at the bedside. Overnight events were reviewed. Review of systems abdominal pain. No new complaints reported. Rest of the ROS is negative. Objective vital signs Vital Sign Date Time Temp Pulse Resp B/P (MAP) Pulse Ox O2 Delivery O2 Flow Rate FiO2 01/28/25 14:43 98 16 163/60 01/28/25 13:00 98.3 96 98.3 01/28/25 08:00 Nasal Cannula* 2 28 Total Intake and Output 01/27/25 01/27/25 01/28/25 15:00 23:00 07:00 Intake Total 100 ml 200 ml 0 ml Balance 100 ml 200 ml 0 ml medications Current Medications Medications Dose Ordered Sig/Cody Route Start Time Stop Time Status Last Admin Dose Admin Sodium Chloride 1,000 ml @ 120 mls/hr Q8H20M IV 01/27/25 03:30 01/28/25 11:48 120 MLS/HR Ondansetron HCl 4 mg Q4HP PRN IV 01/27/25 03:30 01/27/25 04:13 4 MG Hydralazine HCl 10 mg Q6HP PRN IV 01/27/25 03:30 01/28/25 11:48 10 MG Pantoprazole Sodium 40 mg DAILY IV 01/27/25 10:00 01/28/25 08:42 40 MG Ketorolac Tromethamine 15 mg Q6HPRN PRN IV 01/27/25 03:45 02/01/25 03:29 Hold 01/28/25 06:13 15 MG Ceftriaxone Sodium 50 ml @ 100 mls/hr DAILY@09 IV 01/27/25 09:00 01/28/25 08:42 100 MLS/HR Heparin Sodium (Porcine) 5,000 units Q12HR SC 01/27/25 10:00 01/28/25 08:43 5,000 UNITS Diagnostic Test (Pha) 1 strip Q6HR 01/27/25 06:00 01/28/25 11:01 1 STRIP Insulin Human Regular Q6HR SC 01/27/25 06:00 01/28/25 06:24 3 UNITS Dextrose 50 ml UD PRN IV 01/27/25 05:30 Metronidazole 100 ml @ 100 mls/hr Q8HR IV 01/27/25 13:00 01/28/25 14:41 100 MLS/HR Insulin Glargine 10 units QAM SC 01/27/25 09:00 01/28/25 06:24 10 UNITS Morphine Sulfate 1 mg Q4HP PRN IV 01/28/25 09:45 01/28/25 14:43 1 MG Examination Pt is lying on bed General Appearance: NG tube intermittent suction, Alert, Oriented X3, Cooperative, Mild distress HEENT: Atraumatic, Mucous membranes moist/pink Respiratory: Clear to auscultation, Normal air movement, No added sounds Cardiovascular: Regular rate, Normal S1, Normal S2, No murmurs Abdominal/ : Tender upper abdomen. Diminished bowel sounds, Soft, no distention, no tenderness Extremities: No edema, Normal pulses, No tenderness/swelling Skin: No Significant rash, except past surgical scars Neuro: Normal speech, sensorimotor deficits none Psych/Mental Status: Mental status NL, Mood NL Nurse was there as boat buffer plastic during examination laboratory and microbiology Laboratory Tests 01/28/25 05:14 Test 01/28/25 05:14 Range/Units Serum Glucose 143 H 74-106 mg/dL Microbiology Date/Time Source Procedure Growth Status 01/27/25 04:02 Blood Blood Culture - Preliminary NO GROWTH AFTER 24 HOURS OF INCUBATION. Resulted Problem List/Assessment/Plan Problem List/Assessment/Plan # Intractable abdominal pain likely due to small bowel obstruction, rule out acute cholecystitis/pancreatitis/gastritis # Small-bowel obstruction # intractable nausea and vomiting -lipase 36 -CT abdomen pelvis revealed-Moderate small-bowel obstruction without clear identifiable transition point although possibly within the right hemiabdomen. -NPO until further order -continue IV normal saline as prescribed -continue iv ceftriaxone and iv metronidazole as prescribed -Small-bowel series Gastrografin:Indicates a possible bowel obstruction -Surgery consult : NG tube low continuous suction device,Gasrtrografin indicates a possible bowel obstruction.judging from physical examination there is no need for an emergency surgical intervention. will follow -ultrasound of the liver- Cholelithiasis with distended gallbladder. No sonographic evidence for acute cholecystitis. -nasogastric suction #Acute complicated cystitis -urinalysis revealed leukocyte esterase 3+, WBC 42 -continue IV antibiotic ceftriaxone -pending urine culture, blood culture #Uncontrolled hypertension -continue IV hydralazine PRN as prescribed -monitor blood pressure # Diabetes mellitus type 2 with hyperglycemia -hemoglobin A1c-7.2 -insulin NPO sliding scale # right renal nodule -follow up outpatient with primary care physician GI prophylaxis: DVT prophylaxis: Diet: Goals of care discussed with the patient for more than 27 minutes: Full code status Case discussed with , patient and RN NPO until further order Goals of care, Code status full code; discussed with >15 minutes PUD prophylaxis: Pantoprazole DVT prophylaxis: Heparin Plan discussed with: Patient, Other (RN) Date of Service: Jan 28, 2025 Billing Provider: MONIK HOLLAND MD Common Visit Codes: [id number] INP/OBS CARE(HIGH) MADI LIAO Jan 28, 2025 15:23 MONIK HOLLAND MD Jan 28, 2025 23:47
[2025-01-28 16:37] VITALS: BP 125/94; PULSE 89; RESP 18; TEMP 98.1; O2SAT 95
[2025-01-28] MEDS: SODIUM CHLORIDE 0.9% 1,000 ML IV SCH (17:23)
[2025-01-28 21:00] VITALS: BP 139/72; PULSE 92; RESP 16; TEMP 98.4; O2SAT 95
[2025-01-29] VITALS (7 sets, daily range): BP systolic 131–173; BP diastolic 71–82; PULSE 81–104; RESP 17–18; TEMP 97.7–99; O2SAT 92–97
[2025-01-29] MEDS: DEXTROSE (50%) 50ML SYRG IV ONE (07:07)
[2025-01-29] MEDS: D5W/SOD CHLO 0.9% 1,000 ML IV SCH (07:07)
[2025-01-29 07:37] LABS: Hematocrit 40.2 % (36.0-46.0); Hemoglobin 13.9 g/dL (12.2-16.2); Mean Corpuscular Hemoglobin 30.9 pg (28.0-32.0); Mean Corpuscular Volume 89.3 fL (80.0-100.0); Nucleated Red Blood Cells % 0.0 %
[2025-01-29 07:40] LABS: Chloride 105 mmol/L (98-107); Sodium 145 mmol/L (136-145)
[2025-01-29 07:41] LABS: Anion Gap 11 (5-15); Carbon Dioxide 29 mmol/L (20-31)
[2025-01-29 07:42] LABS: Calcium 10.4 mg/dL (8.7-10.4); Potassium 3.3 mmol/L (3.5-5.1)
[2025-01-29 07:46] LABS: BUN/Creatinine Ratio 64.3 (10.0-20.0)
[2025-01-29 07:47] LABS: Blood Urea Nitrogen 45 mg/dL (9-23); Glucose 60 mg/dL (74-106)
[2025-01-29] MEDS: POTASSIUM CHL 20MEQ/100ML 100 ML IV SCH (11:07)
--- NOTE | 2025-01-29 11:28 | DVH ---
Date: 01/29/2025 10:47 AM Examination: XY KUB ABDOMEN SINGLE VIEW History: sbo; abdominal pain Comparison: None TECHNIQUE: Frontal views of the abdomen was obtained. FINDINGS: Bowel gas pattern is unremarkable. Enteric tube projects over the right upper quadrant. Contrast is v isualized in the small bowel. No definite evidence of contrast in the colon. The lung bases are unremarkable. No acute osseous abnormality identified. IMPRESSION: Contrast is visualized in the small bowel. No definite evidence of contrast in the colon.
--- NOTE | 2025-01-29 12:11 | DVHPN2 ---
Progress Note Date Seen: Jan 29, 2025 Medical Necessity Reason Pt with a Central, PICC or Fol: No Objective vital signs Vital Sign Date Time Temp Pulse Resp B/P (MAP) Pulse Ox O2 Delivery O2 Flow Rate FiO2 01/29/25 11:04 168/75 01/29/25 08:41 98.7 96 18 92 98.7 01/28/25 20:00 Nasal Cannula* 2 28 Total Intake and Output 01/28/25 01/28/25 01/29/25 15:00 23:00 07:00 Intake Total 150 ml 920 ml 100 ml Output Total 200 ml Balance 150 ml 920 ml -100 ml medications Current Medications Medications Dose Ordered Sig/Cody Route Start Time Stop Time Status Last Admin Dose Admin Ondansetron HCl 4 mg Q4HP PRN IV 01/27/25 03:30 01/27/25 04:13 4 MG Hydralazine HCl 10 mg Q6HP PRN IV 01/27/25 03:30 01/29/25 11:04 10 MG Pantoprazole Sodium 40 mg DAILY IV 01/27/25 10:00 01/29/25 09:10 40 MG Ceftriaxone Sodium 50 ml @ 100 mls/hr DAILY@09 IV 01/27/25 09:00 01/29/25 09:10 100 MLS/HR Heparin Sodium (Porcine) 5,000 units Q12HR SC 01/27/25 10:00 01/29/25 11:08 5,000 UNITS Diagnostic Test (Pha) 1 strip Q6HR 01/27/25 06:00 01/29/25 05:59 1 STRIP Insulin Human Regular Q6HR SC 01/27/25 06:00 01/28/25 06:24 3 UNITS Dextrose 50 ml UD PRN IV 01/27/25 05:30 Metronidazole 100 ml @ 100 mls/hr Q8HR IV 01/27/25 13:00 01/29/25 05:55 100 MLS/HR Morphine Sulfate 1 mg Q4HP PRN IV 01/28/25 09:45 01/28/25 18:46 1 MG Dextrose/Sodium Chloride 1,000 ml @ 100 mls/hr Q10H IV 01/29/25 07:00 01/29/25 07:07 100 MLS/HR Potassium Chloride 100 ml @ 50 mls/hr Q2H IV 01/29/25 10:00 01/29/25 13:59 01/29/25 11:07 50 MLS/HR laboratory and microbiology Laboratory Tests 01/29/25 06:50 Test 01/29/25 06:50 Range/Units Serum Glucose 60 L 74-106 mg/dL Problem List/Assessment/Plan Problem List/Assessment/Plan 01/28/25 79 year old female with abdominal pain since yesterday, no prior operations, abdomen soft, non distended, non tender. Gasrtrografin indicates a possible bowel obstruction.judging from physical examination there is no need for an emergency surgical intervention. will follow 01/29/25 NO BOWEL ACTIVITY, ABDOMEN NON TENDER, NON DISTENDED, NO PRIOR OPERATIONS, WILL ASK FOR GI CONSULT TO CONSIDER COLONOSCOPY Plan discussed with: FILOMENA Acosta MD Jan 29, 2025 12:11
[2025-01-29] MEDS ORDERED: CLINIMIX PER PHARMACY 0 ML IV SCH (13:45)
--- NOTE | 2025-01-29 13:50 | DVHINCON2 ---
GI Consult Consult Note GI consult note Date of Consultation: 01/29/2025 Chief Complaint: Abdominal pain Referring Physician: Dr. Harmon H&P: 79-year-old Russian-speaking patient, family at bedside translating, with past medical history of hypertension, diabetes, came in with complains of abdominal pain which started two days ago. Also having nausea and vomiting, denies hematemesis. Last bowel movement 3-4 days ago. Patient has occasional constipation. Last colonoscopy 6-7 years ago, unsure about the results Past Medical History: Hypertension, diabetes mellitus type 2 Past Surgical History: None Social History: NO smoking, drinking ETOH and use of illegal drugs. Family History: Noncontributory Review of Systems: Constitutional: no fever, chill, weight loss HEENT: no eye pain, no hearing loss, no oral lesion, no scleral icterus Heart: no chest pain, no chest pressure Lung: no cough, no dyspnea with exertion Abdomen: see HPI Physical exam: General: NAD, AAOX3 Chest: lung mosley clear to auscultation Heart: RRR, no murmur Abdomen: non-distended, no tenderness to palpation, decreased BS Labs: Labs Test 01/29/25 12:06 01/29/25 06:50 01/28/25 05:14 01/27/25 08:54 Range/Units POC Glucose 123 H 70-106 mg/dl White Blood Count 11.6 H 4.4-10.8 10^3/uL Red Blood Count 4.50 4.0-5.20 10^6/uL Hemoglobin 13.9 12.2-16.2 g/dL Hematocrit 40.2 36.0-46.0 % Mean Corpuscular Volume 89.3 80.0-100.0 fL Mean Corpuscular Hemoglobin 30.9 28.0-32.0 pg Mean Corpuscular Hemoglobin Concent 34.6 32.0-36.0 g/dL Red Cell Distribution Width 14.5 H 11.8-14.3 % Platelet Count 225 140-450 10^3/uL Mean Platelet Volume 9.8 6.9-10.8 fL Neutrophils (%) (Auto) 88.4 H 37.0-80.0 % Lymphocytes (%) (Auto) 7.0 L 10.0-50.0 % Monocytes (%) (Auto) 4.4 0.0-12.0 % Eosinophils (%) (Auto) 0.0 0.0-7.0 % Basophils (%) (Auto) 0.2 0.0-2.0 % Neutrophils # (Auto) 10.3 H 1.6-8.6 10 ^3/uL Lymphocytes # (Auto) 0.8 0.4-5.4 10 ^3/uL Monocytes # (Auto) 0.5 0-1.3 10 ^3/uL Eosinophils # (Auto) 0 0-0.8 10 ^3/uL Basophils # (Auto) 0 0-0.2 10 ^3/uL Nucleated Red Blood Cells 0.0 % Sodium Level 145 136-145 mmol/L Potassium Level 3.3 L 3.5-5.1 mmol/L Chloride Level 105 98-107 mmol/L Carbon Dioxide Level 29 20-31 mmol/L Anion Gap 11 5-15 Blood Urea Nitrogen 45 #H 9-23 mg/dL Creatinine 0.70 0.550-1.02 mg/dL Glomerular Filtration Rate Calc 87 >90 mL/min BUN/Creatinine Ratio 64.3 H 10.0-20.0 Serum Glucose 60 L 74-106 mg/dL Calcium Level 10.4 8.7-10.4 mg/dL Magnesium Level 2.4 1.6-2.6 mg/dL Total Bilirubin 0.6 0.2-1.0 mg/dL Aspartate Amino Transferase (AST) 22 13-40 U/L Alanine Aminotransferase (ALT) < 9 7-40 U/L Alkaline Phosphatase 88 46-116 U/L Total Protein 7.4 5.7-8.2 g/dL Albumin 4.8 3.2-4.8 g/dL Hepatitis B Surface Antigen Negative Negative Hepatitis C Antibody Negative Negative Lipase 43 12-53 U/L Test 01/27/25 05:59 01/27/25 04:42 01/26/25 23:59 01/26/25 23:10 Range/Units Lactic Acid Level 1.9 0.4-2.0 mmol/L Thyroid Stimulating Hormone (TSH) 2.12 0.55-4.78 uIU/mL Urine Color Yellow Yellow Urine Clarity Clear Clear Urine pH 6.5 5.0-9.0 Urine Specific [place] 1.036 H 1.001-1.035 Urine Protein 1+ H Negative Urine Ketones 2+ H Negative Urine Blood Negative Negative /uL Urine Nitrite Negative Negative Urine Bilirubin Negative Negative Urine Urobilinogen Normal Negative mg/dL Urine Leukocyte Esterase 3+ Negative /uL Urine RBC 8 0 - 4 /hpf Urine Microscopic WBC 42 H 0-5 /HPF Urine Squamous Epithelial Cells Few <5 /hpf Urine Bacteria None seen None Seen /hpf Urine Hyaline Casts Mod 0 - 2 /lpf Urine Mucus Few None Seen Urine Glucose 4+ H Normal mg/dL Hemoglobin A1c 7.2 H <5.7 % A1C Vitamin D 25-Hydroxy 76.0 30.0-100 ng/mL Folic Acid 31.95 >5.38 ng/mL Microbiology Date/Time Source Procedure Growth Status 01/27/25 04:02 Blood Blood Culture - Preliminary NO GROWTH AFTER 48 HOURS OF INCUBATION. Resulted Imaging: CT abdomen pelvis IMPRESSION: 1. Moderate small-bowel obstruction without clear identifiable transition point although possibly within the right hemiabdomen. 2. The gallbladder is contains calcified gallstones with question mild gallbladd er wall thickening ; consider right upper quadrant ultrasound if there is concern for acute cholecystitis. 3. Right adrenal gland nodule measuring 2.1 x 1.5 cm. Abdominal ultrasound IMPRESSION: 1. Cholelithiasis with distended gallbladder. No sonographic evidence for acute cholecystitis. Correlate with clinical findings. 2. Additional findings as described above. Small-bowel x-ray FINDINGS/IMPRESSION: Initial dye range operator view of the abdomen and pelvis demonstrates dilated small bowel loops. At 5 hours after administration, contrast has not reached the colon, consistent with small-bowel obstruction. There is demineralization of the bones. There is no supine evidence of pneumoperitoneum. HIDA scan Results pending Assessment: Small-bowel obstruction Abdominal pain UTI Plan: Discussed with Dr. Sauceda Continue NG tube to LIS NPO IV Clinimix Conservative management recommended at this time CEA Monitor labs We will continue to monitor patient Discussed plan with patient family at bedside and RN and resident Dr. Banuelos Thank you for this consult Date of Service: Jan 29, 2025 Billing Provider: TIFFANIE LOPEZ Common Visit Codes: CONSULT ONLY Consultation Codes: [id number] CONSULT <60MIN TIFFANIE LOPEZ Jan 29, 2025 13:50
--- NOTE | 2025-01-29 13:58 | DVH ---
EXAM: NM NM HIDA SCAN History: r/o cholecystitis Comparison Study: None TECHNIQUE: Following intravenous administration of 5.0 mCi of Tc-99m mebrofenin (Choletec), dynamic sequential images of the right upper abdomen were acquired for 60 minutes. An additional 4 hour delay ed planar image in the anterior and lateral projections were also obtained. FINDINGS: The liver demonstrates prompt radiotracer uptake with clearance from blood pool. No focal perfusion d efects were noted. There was prompt excretion of the radiotracer into the biliary tree, without evide nce of biliary dilatation or obstruction. There was filling of the gallbladder on the 4 hour delayed images. IMPRESSION: 1. No evidence for acute cholecystitis. Chronic cholecystitis not excluded.
--- NOTE | 2025-01-29 15:42 | DVHPNRES ---
Progress Note Date Seen: Jan 29, 2025 Resident Creating Document: MADI LIAO Medical Necessity Reason Pt with a Central, PICC or Fol: No Subjective Review of Systems The patient reports she does not have any abdominal pain today. She denies any chest pain, fever, shortness of breath or any other complaints today. Review of systems: The patient was seen and examined at the bedside. Overnight events were reviewed. No new complaints reported. Rest of the ROS negative. Objective vital signs Vital Sign Date Time Temp Pulse Resp B/P (MAP) Pulse Ox O2 Delivery O2 Flow Rate FiO2 01/29/25 15:32 91 18 138/72 01/29/25 13:00 97.7 93 97.7 01/29/25 08:00 Room Air* 0 21 Total Intake and Output 01/28/25 01/28/25 01/29/25 15:00 23:00 07:00 Intake Total 150 ml 920 ml 100 ml Output Total 200 ml Balance 150 ml 920 ml -100 ml medications Current Medications Medications Dose Ordered Sig/Cody Route Start Time Stop Time Status Last Admin Dose Admin Ondansetron HCl 4 mg Q4HP PRN IV 01/27/25 03:30 01/29/25 15:31 4 MG Hydralazine HCl 10 mg Q6HP PRN IV 01/27/25 03:30 01/29/25 11:04 10 MG Pantoprazole Sodium 40 mg DAILY IV 01/27/25 10:00 01/29/25 09:10 40 MG Ceftriaxone Sodium 50 ml @ 100 mls/hr DAILY@09 IV 01/27/25 09:00 01/29/25 09:10 100 MLS/HR Heparin Sodium (Porcine) 5,000 units Q12HR SC 01/27/25 10:00 01/29/25 11:08 5,000 UNITS Diagnostic Test (Pha) 1 strip Q6HR 01/27/25 06:00 01/29/25 05:59 1 STRIP Insulin Human Regular Q6HR SC 01/27/25 06:00 01/28/25 06:24 3 UNITS Dextrose 50 ml UD PRN IV 01/27/25 05:30 Metronidazole 100 ml @ 100 mls/hr Q8HR IV 01/27/25 13:00 01/29/25 14:27 100 MLS/HR Morphine Sulfate 1 mg Q4HP PRN IV 01/28/25 09:45 01/29/25 15:32 1 MG Dextrose/Sodium Chloride 1,000 ml @ 100 mls/hr Q10H IV 01/29/25 07:00 01/29/25 07:07 100 MLS/HR Amino Acids 0 ml @ 0 mls/hr PER PHARMACY IV 01/29/25 13:45 Examination Pt is lying on bed General Appearance: NG suction in place, Alert, Oriented X3, Cooperative, Mild distress HEENT: Atraumatic, Mucous membranes moist/pink Respiratory: Clear to auscultation, Normal air movement, No added sounds Cardiovascular: Regular rate, Normal S1, Normal S2, No murmurs Abdominal/ :bowel sounds present, Soft, no distention, no tenderness Extremities: No edema, Normal pulses, No tenderness/swelling Skin: No Significant rash, except past surgical scars Neuro: Normal speech, sensorimotor deficits none Psych/Mental Status: Mental status NL, Mood NL Nurse was there as manager crisis during examination laboratory and microbiology Laboratory Tests 01/29/25 06:50 Test 01/29/25 06:50 Range/Units Serum Glucose 60 L 74-106 mg/dL Microbiology Date/Time Source Procedure Growth Status 01/27/25 04:02 Blood Blood Culture - Preliminary NO GROWTH AFTER 48 HOURS OF INCUBATION. Resulted Problem List/Assessment/Plan Problem List/Assessment/Plan # Intractable abdominal pain likely due to small bowel obstruction, rule out acute cholecystitis/pancreatitis/gastritis # Small-bowel obstruction # intractable nausea and vomiting -lipase 36 -CT abdomen pelvis revealed-Moderate small-bowel obstruction without clear identifiable transition point although possibly within the right hemiabdomen. -NPO until further order -continue IV normal saline as prescribed -continue iv ceftriaxone and iv metronidazole as prescribed -Small-bowel series Gastrografin:Indicates a possible bowel obstruction -Surgery consult : NG tube low continuous suction device,Gasrtrografin indicates a possible bowel obstruction.judging from physical examination there is no need for an emergency surgical intervention. will follow -ultrasound of the liver- Cholelithiasis with distended gallbladder. No sonographic evidence for acute cholecystitis. -nuclear HIDA scan: No evidence for acute cholecystitis. Chronic cholecystitis not excluded -nasogastric suction: Bowel gas pattern is unremarkable. Enteric tube projects over the right upper quadrant. Contrast is visualized in the small bowel. No definite evidence of contrast in the colon. The lung bases are unremarkable. No acute osseous abnormality identified. -x-ray KUB abdomen:Contrast is visualized in the small bowel. No definite evidence of contrast in the colon. -GI consult #Acute complicated cystitis -urinalysis revealed leukocyte esterase 3+, WBC 42 -continue IV antibiotic ceftriaxone -pending urine culture, blood culture #Uncontrolled hypertension -continue IV hydralazine PRN as prescribed -monitor blood pressure # Diabetes mellitus type 2 with hyperglycemia -hemoglobin A1c-7.2 -insulin NPO sliding scale # right renal nodule -follow up outpatient with primary care physician GI prophylaxis: Pantoprazole DVT prophylaxis: Heparin Diet: NPO followed by clear liquid. Goals of care discussed with the patient for more than 27 minutes: Full code status Case discussed with Dr. Rubi , patient and RN NPO until further order Goals of care, Code status full code; discussed with >15 minutes PUD prophylaxis: Pantoprazole DVT prophylaxis: Heparin Plan discussed with: Patient, Other (RN, family) Date of Service: Jan 29, 2025 Billing Provider: MONIK RUBI MD Common Visit Codes: [id number] INP/OBS CARE(HIGH) MADI LIAO RESIDENT Jan 29, 2025 15:42 MONIK RUBI MD Jan 31, 2025 00:25
[2025-01-29 15:54] LABS: Alanine Aminotransferase < 9 U/L (7-40); Albumin 4.3 g/dL (3.2-4.8); Alkaline Phosphatase 70 U/L (46-116); Bilirubin, Direct 0.2 mg/dL (<0.3); Bilirubin, Total 0.5 mg/dL (0.2-1.0); Magnesium 2.1 mg/dL (1.6-2.6); Total Protein 6.2 g/dL (5.7-8.2)
[2025-01-29] MEDS: AMINO ACID INFUSION IN D10W 1,000 ML IV SCH (22:38)
[2025-01-30] MEDS ORDERED: DEXTROSE (50%) 50ML SYRG IV SCH
[2025-01-30] MEDS: ACCU-CHEK COMFORT CURVE STRIP VI SCH (00:28)
[2025-01-30] MEDS: InsuLIN REG 1unit/0.01ml Soln (100units/ml) SC SCH (00:32)
[2025-01-30 01:00] VITALS: BP 137/67; PULSE 78; RESP 18; TEMP 98.3; O2SAT 96
--- NOTE | 2025-01-30 05:51 | DVH ---
CHEST RADIOGRAPH Indication: per protocol NG tube placement Technique: Single frontal view of the chest was obtained COMPARISON: XY CHEST XRAY 1 VIEW on DOS: 01/27/25 FINDINGS: Lines and Tubes: Enteric catheter in satisfactory position. Lungs: Congestion Pleura: No effusion. No pneumothorax. Cardiomediastinal contours: Unremarkable Bones: Unremarkable IMPRESSION: Nasogastric tube in satisfactory position.
[2025-01-30 07:59] LABS: Hematocrit 38.9 % (36.0-46.0); Hemoglobin 13.1 g/dL (12.2-16.2); Mean Corpuscular Hemoglobin 30.5 pg (28.0-32.0); Mean Corpuscular Volume 90.3 fL (80.0-100.0); Nucleated Red Blood Cells % 0.0 %
[2025-01-30 08:00] VITALS: RESP 18
[2025-01-30 08:10] LABS: Albumin 3.9 g/dL (3.2-4.8); Alkaline Phosphatase 61 U/L (46-116); Anion Gap 9 (5-15); BUN/Creatinine Ratio 60.7 (10.0-20.0); Calcium 9.5 mg/dL (8.7-10.4); Carbon Dioxide 28 mmol/L (20-31); Magnesium 2.0 mg/dL (1.6-2.6); Potassium 3.5 mmol/L (3.5-5.1); Total Protein 5.8 g/dL (5.7-8.2)
[2025-01-30 08:11] LABS: Alanine Aminotransferase < 9 U/L (7-40); Bilirubin, Total 0.6 mg/dL (0.2-1.0); Blood Urea Nitrogen 34 mg/dL (9-23); Chloride 111 mmol/L (98-107); Glucose 138 mg/dL (74-106); Sodium 148 mmol/L (136-145)
[2025-01-30 08:58] VITALS: BP 159/63; PULSE 75; RESP 18; TEMP 98.9; O2SAT 95
--- NOTE | 2025-01-30 12:44 | DVHPN2 ---
Subjective Patient admits to feeling slightly better Able to pass gas Changes from previous H/P or p: No Changes Objective Vitals Vital Signs Date Time Temp Pulse Resp B/P (MAP) Pulse Ox O2 Delivery O2 Flow Rate FiO2 01/30/25 11:18 94 18 147/72 01/30/25 08:58 98.9 95 98.9 01/30/25 08:00 Room Air* 0 21 Intake/Output Intake and Output 01/30/25 07:00 Intake Total 1550 ml Output Total 450 ml Balance 1100 ml Intake Oral 0 ml IV Total 1550 ml Output Gastric Drainage Total 450 ml # Voids 2 General Appearance: Alert, Oriented X3, Cooperative, No acute distress, mild distress, moderate distress, severe distress, Other Lungs: Clear to auscultation, Normal air movement, Other Cardiovascular: Regular rate, Normal S1, Normal S2, No murmurs, Gallops, Rubs, Other Abdomen: Normal bowel sounds, Soft, No tenderness, No hepatospenomegaly, No masses, Other (Improved bowel sounds) Medications Current Medications Medications Dose Ordered Sig/Cody Route Start Time Stop Time Status Last Admin Dose Admin Ondansetron HCl 4 mg Q4HP PRN IV 01/27/25 03:30 01/29/25 15:31 4 MG Hydralazine HCl 10 mg Q6HP PRN IV 01/27/25 03:30 01/30/25 09:04 10 MG Pantoprazole Sodium 40 mg DAILY IV 01/27/25 10:00 01/30/25 09:03 40 MG Ceftriaxone Sodium 50 ml @ 100 mls/hr DAILY@09 IV 01/27/25 09:00 01/30/25 09:03 100 MLS/HR Heparin Sodium (Porcine) 5,000 units Q12HR SC 01/27/25 10:00 01/30/25 09:47 5,000 UNITS Metronidazole 100 ml @ 100 mls/hr Q8HR IV 01/27/25 13:00 01/30/25 05:41 100 MLS/HR Morphine Sulfate 1 mg Q4HP PRN IV 01/28/25 09:45 01/30/25 11:18 1 MG Dextrose/Sodium Chloride 1,000 ml @ 100 mls/hr Q10H IV 01/29/25 07:00 01/29/25 18:42 100 MLS/HR Amino Acids 0 ml @ 0 mls/hr PER PHARMACY IV 01/29/25 13:45 Diagnostic Test (Pha) 1 strip Q6HR 01/30/25 00:00 01/30/25 12:12 1 STRIP Insulin Human Regular FOLLOW SLIDING SCALE Q6HR SC 01/30/25 00:00 01/30/25 12:15 4 UNITS Dextrose 50 ml UD IV 01/30/25 00:00 Amino Acids/ Electrolytes/ Dextrose 1,000 ml @ 41 mls/hr DAILY@2200 IV 01/29/25 22:00 01/29/25 22:38 41 MLS/HR Laboratory Results Laboratory Tests 01/30/25 06:54 Chemistry Test 01/29/25 15:12 01/30/25 06:54 Albumin 4.3 g/dL (3.2-4.8) 3.9 g/dL (3.2-4.8) Magnesium Level 2.1 mg/dL (1.6-2.6) 2.0 mg/dL (1.6-2.6) Phosphorus Level 2.6 mg/dL (2.4-5.1) 1.5 mg/dL (2.4-5.1) L Total Protein 6.2 g/dL (5.7-8.2) 5.8 g/dL (5.7-8.2) Calcium Level 9.5 mg/dL (8.7-10.4) LFT Test 01/29/25 15:12 01/30/25 06:54 Alanine Aminotransferase (ALT) < 9 U/L (7-40) < 9 U/L (7-40) Alkaline Phosphatase 70 U/L (46-116) 61 U/L (46-116) Aspartate Amino Transferase (AST) 19 U/L (13-40) 17 U/L (13-40) Direct Bilirubin 0.2 mg/dL (<0.3) Total Bilirubin 0.5 mg/dL (0.2-1.0) 0.6 mg/dL (0.2-1.0) Urinalysis Test 01/26/25 23:59 Urine Color Yellow (Yellow) Urine Clarity Clear (Clear) Urine pH 6.5 (5.0-9.0) Urine Specific [place] 1.036 (1.001-1.035) Urine Protein 1+ (Negative) H Urine Ketones 2+ (Negative) H Urine Blood Negative /uL (Negative) Urine Nitrite Negative (Negative) Urine Bilirubin Negative (Negative) Urine Urobilinogen Normal mg/dL (Negative) Urine Leukocyte Esterase 3+ /uL (Negative) Urine RBC 8 /hpf (0 - 4) Urine Microscopic WBC 42 /HPF (0-5) H Urine Squamous Epithelial Cells Few /hpf (<5) Urine Bacteria None seen /hpf (None Seen) Urine Hyaline Casts Mod /lpf (0 - 2) Urine Mucus Few (None Seen) Urine Glucose 4+ mg/dL (Normal) H Microbiology Microbiology Date/Time Source Procedure Growth Status 01/27/25 04:02 Blood Blood Culture - Preliminary NO GROWTH AFTER 72 HOURS OF INCUBATION. Resulted Labs and/or images reviewed: Labs reviewed by me, Image(s) reviewed by me Assessment/Plan Assessment/Plan Abdominal pain Small-bowel obstruction UTI Plan Discussed with Dr. Sauceda Continue NG tube NPO Reviewed abdominal x-rays and discussed results with family at bedside We will continue to monitor patient Plan discussed with: Patient, Son, Other (RN) My Orders Orders - TIFFANIE LOPEZ Procedure Category Date Status Time Clinimix Per Pharmacy PHA 01/29/25 In Process 13:45 Glucose Blood PHA 01/30/25 In Process (Accu-Chek Comfort 00:00 Insulin R (Human) PHA 01/30/25 In Process (Insulin R) 00:00 Dextrose 50% Syringe PHA 01/30/25 In Process 00:00 Amino Acid Infusion PHA 01/29/25 In Process In D10w (Clinimix 4. 22:00 Clinimix Per Pharmacy [facility] 01/29/25 In Process 22:00 Date of Service: Jan 30, 2025 Billing Provider: TIFFANIE LOPEZ Common Visit Codes: [id number] INP/OBS CARE(HIGH) TIFFANIE LOPEZ Jan 30, 2025 12:44
[2025-01-30 13:22] VITALS: BP 137/59; PULSE 84; RESP 18; TEMP 98.5; O2SAT 95
--- NOTE | 2025-01-30 14:03 | DVH ---
Date: 01/30/2025 01:26 PM Examination: XY KUB ABDOMEN SINGLE VIEW History: SBO Comparison: XY KUB ABDOMEN SINGLE VIEW on DOS: 01/29/25 TECHNIQUE: Frontal views of the abdomen was obtained. FINDINGS: Bowel gas pattern is unremarkable. The lung bases are unremarkable. No acute osseous abnormality identified. IMPRESSION: Nonobstructive bowel gas pattern. Contrast seen in nondistended colon nasogastric tube tip in the stomach.
--- NOTE | 2025-01-30 15:49 | DVHPN2 ---
Progress Note - Dictate Date Seen: Jan 30, 2025 Medical Necessity Reason Pt with a Central, PICC or Fol: No Subjective E: no major events o/n. no complaints. vital signs Vital Sign Date Time Temp Pulse Resp B/P (MAP) Pulse Ox O2 Delivery O2 Flow Rate FiO2 01/30/25 13:22 98.5 84 18 137/59 (85) 95 98.5 01/30/25 08:00 Room Air* 0 21 Total Intake and Output 01/29/25 01/29/25 01/30/25 14:59 22:59 06:59 Intake Total 150 ml 1200 ml 200 ml Output Total 450 ml Balance 150 ml 750 ml 200 ml medications Current Medications Medications Dose Ordered Sig/Cody Route Start Time Stop Time Status Last Admin Dose Admin Ondansetron HCl 4 mg Q4HP PRN IV 01/27/25 03:30 01/29/25 15:31 4 MG Hydralazine HCl 10 mg Q6HP PRN IV 01/27/25 03:30 01/30/25 09:04 10 MG Pantoprazole Sodium 40 mg DAILY IV 01/27/25 10:00 01/30/25 09:03 40 MG Ceftriaxone Sodium 50 ml @ 100 mls/hr DAILY@09 IV 01/27/25 09:00 01/30/25 09:03 100 MLS/HR Heparin Sodium (Porcine) 5,000 units Q12HR SC 01/27/25 10:00 01/30/25 09:47 5,000 UNITS Metronidazole 100 ml @ 100 mls/hr Q8HR IV 01/27/25 13:00 01/30/25 13:34 100 MLS/HR Morphine Sulfate 1 mg Q4HP PRN IV 01/28/25 09:45 01/30/25 11:18 1 MG Dextrose/Sodium Chloride 1,000 ml @ 100 mls/hr Q10H IV 01/29/25 07:00 01/30/25 13:34 100 MLS/HR Amino Acids 0 ml @ 0 mls/hr PER PHARMACY IV 01/29/25 13:45 Diagnostic Test (Pha) 1 strip Q6HR 01/30/25 00:00 01/30/25 12:12 1 STRIP Insulin Human Regular FOLLOW SLIDING SCALE Q6HR SC 01/30/25 00:00 01/30/25 12:15 4 UNITS Dextrose 50 ml UD IV 01/30/25 00:00 Amino Acids/ Electrolytes/ Dextrose 1,000 ml @ 41 mls/hr DAILY@2200 IV 01/29/25 22:00 01/29/25 22:38 41 MLS/HR objective GEN: NAD ABD: soft. NT/ND. KUB: contrast in colon. Nonspecific bowel gas pattern laboratory and microbiology Laboratory Tests 01/30/25 06:54 Test 01/30/25 06:54 Range/Units Serum Glucose 138 H 74-106 mg/dL Assessment/Plan A: 1. Resolved partial small bowel obstruction P: 1. DC NG tube and start clear liquid diet. If the patient tolerates a clear liquid diet advanced to full liquid tomorrow and possible discharge home from surgery point of view. Dietary Evaluation Review Comments: 1) Advance diet as medically feasible 2) Consider TPN to meet at least 75% estimated Expected Outcomes/Goals: To meet >75% estimated needs Fu 2-3 days Plan discussed with: Patient, Daughter HANSA GARCIA MD Jan 30, 2025 15:49
[2025-01-30 17:00] VITALS: BP 145/84; PULSE 78; RESP 18; TEMP 98.6; O2SAT 96
[2025-01-30] MEDS: POTASSIUM PHOSPHATE 22 MEQ in SODIUM CHL 0.9% 100 ML IV ONE (18:53)
--- NOTE | 2025-01-30 20:49 | DVHPNRES ---
Progress Note Date Seen: Jan 30, 2025 Resident Creating Document: MADI LIAO RESIDENT Has the PT tested + for MRSA If YES, has PT been informed?: Yes Medical Necessity Reason Pt with a Central, PICC or Fol: No Subjective Review of Systems The patient is NPO, she feels thirsty and wanted to have some water. She reports her abdominal pain improved. Review of the systems: The patient was seen and examined at the bedside. Overnight events were reviewed, patient was confused at night and pulled out her NG tube. Replaced by the nurses. ROS as above. Rest of the ROS is negative Objective vital signs Vital Sign Date Time Temp Pulse Resp B/P (MAP) Pulse Ox O2 Delivery O2 Flow Rate FiO2 01/30/25 17:00 98.6 78 18 145/84 (104) 96 98.6 01/30/25 08:00 Room Air* 0 21 Total Intake and Output 01/29/25 01/29/25 01/30/25 15:00 23:00 07:00 Intake Total 150 ml 1200 ml 200 ml Output Total 450 ml Balance 150 ml 750 ml 200 ml medications Current Medications Medications Dose Ordered Sig/Cody Route Start Time Stop Time Status Last Admin Dose Admin Ondansetron HCl 4 mg Q4HP PRN IV 01/27/25 03:30 01/29/25 15:31 4 MG Hydralazine HCl 10 mg Q6HP PRN IV 01/27/25 03:30 01/30/25 09:04 10 MG Pantoprazole Sodium 40 mg DAILY IV 01/27/25 10:00 01/30/25 09:03 40 MG Ceftriaxone Sodium 50 ml @ 100 mls/hr DAILY@09 IV 01/27/25 09:00 01/30/25 09:03 100 MLS/HR Heparin Sodium (Porcine) 5,000 units Q12HR SC 01/27/25 10:00 01/30/25 09:47 5,000 UNITS Metronidazole 100 ml @ 100 mls/hr Q8HR IV 01/27/25 13:00 01/30/25 13:34 100 MLS/HR Morphine Sulfate 1 mg Q4HP PRN IV 01/28/25 09:45 01/30/25 11:18 1 MG Dextrose/Sodium Chloride 1,000 ml @ 100 mls/hr Q10H IV 01/29/25 07:00 01/30/25 13:34 100 MLS/HR Diagnostic Test (Pha) 1 strip Q6HR 01/30/25 00:00 01/30/25 12:12 1 STRIP Insulin Human Regular FOLLOW SLIDING SCALE Q6HR SC 01/30/25 00:00 01/30/25 12:15 4 UNITS Dextrose 50 ml UD IV 01/30/25 00:00 Amino Acids/ Electrolytes/ Dextrose 1,000 ml @ 41 mls/hr DAILY@2200 IV 01/29/25 22:00 01/30/25 21:59 01/29/25 22:38 41 MLS/HR Examination Pt is lying on bed General Appearance: NG tube in suction, Alert, Oriented X3, Cooperative, Mild distress HEENT: Atraumatic, Mucous membranes moist/pink Respiratory: Clear to auscultation, Normal air movement, No added sounds Cardiovascular: Regular rate, Normal S1, Normal S2, No murmurs Abdominal/ : Mild tenderness on the upper abdomen on deep palpation, bowel sounds present but diminished, Soft, no distention, no tenderness Extremities: No edema, Normal pulses, No tenderness/swelling Skin: No Significant rash, except past surgical scars Neuro: Normal speech, sensorimotor deficits none Psych/Mental Status: Mental status NL, Mood NL Nurse was there as high school science tutor during examination laboratory and microbiology Laboratory Tests 01/30/25 06:54 Test 01/30/25 06:54 Range/Units Serum Glucose 138 H 74-106 mg/dL Microbiology Date/Time Source Procedure Growth Status 01/27/25 04:02 Blood Blood Culture - Preliminary NO GROWTH AFTER 72 HOURS OF INCUBATION. Resulted Labs and/or images reviewed: Labs reviewed by me, Image(s) reviewed by me Problem List/Assessment/Plan Problem List/Assessment/Plan # Intractable abdominal pain likely due to small bowel obstruction, rule out acute cholecystitis/pancreatitis/gastritis # Small-bowel obstruction # intractable nausea and vomiting -lipase 36 -CT abdomen pelvis revealed-Moderate small-bowel obstruction without clear identifiable transition point although possibly within the right hemiabdomen. -NPO until further order -continue IV normal saline as prescribed -continue iv ceftriaxone and iv metronidazole as prescribed -Small-bowel series Gastrografin:Indicates a possible bowel obstruction -Surgery consult : NG tube low continuous suction device,Gasrtrografin indicates a possible bowel obstruction.judging from physical examination there is no need for an emergency surgical intervention. will follow -ultrasound of the liver- Cholelithiasis with distended gallbladder. No sonographic evidence for acute cholecystitis. -nuclear HIDA scan: No evidence for acute cholecystitis. Chronic cholecystitis not excluded -nasogastric suction: Bowel gas pattern is unremarkable. Enteric tube projects over the right upper quadrant. Contrast is visualized in the small bowel. No definite evidence of contrast in the colon. The lung bases are unremarkable. No acute osseous abnormality identified. -x-ray KUB abdomen:Contrast is visualized in the small bowel. No definite evidence of contrast in the colon. -surgical assistant certified advised to remove NG tube and to advance clear liquids on assess tomorrow #Acute complicated cystitis -urinalysis revealed leukocyte esterase 3+, WBC 42 -continue IV antibiotic ceftriaxone -pending urine culture, blood culture #Uncontrolled hypertension -continue IV hydralazine PRN as prescribed -monitor blood pressure # Diabetes mellitus type 2 with hyperglycemia -hemoglobin A1c-7.2 -insulin NPO sliding scale # right renal nodule -follow up outpatient with primary care physician GI prophylaxis: Pantoprazole DVT prophylaxis: Heparin Diet: NPO followed by clear liquid. Goals of care discussed with the patient for more than 27 minutes: Full code status Case discussed with Dr. Rubi , patient and RN NPO until further order Goals of care, Code status full code; discussed with >15 minutes PUD prophylaxis: Pantoprazole DVT prophylaxis: Heparin Plan discussed with: Patient, Other My Orders My Orders Orders - MADI LIAO RESIDENT Procedure Category Date Status Time Chest Xray 1 View XY 01/30/25 Resulted 04:54 Dietary Evaluation Review Comments: 1) Advance diet as medically feasible 2) Consider TPN to meet at least 75% estimated Expected Outcomes/Goals: To meet >75% estimated needs Fu 2-3 days Date of Service: Jan 30, 2025 Billing Provider: MONIK RUBI MD Common Visit Codes: [id number] INP/OBS CARE(HIGH) MADI LIAO RESIDENT Jan 30, 2025 20:49 MONIK RUBI MD Jan 31, 2025 00:26
[2025-01-30 21:00] VITALS: BP 134/58; PULSE 76; RESP 18; TEMP 98.5; O2SAT 95
[2025-01-31 01:00] VITALS: BP 146/59; PULSE 74; RESP 18; TEMP 98.5; O2SAT 94
[2025-01-31 05:00] VITALS: BP 145/70; PULSE 77; RESP 18; TEMP 98.8; O2SAT 96
[2025-01-31 08:04] LABS: INR 1.04 (0.9-1.15); Partial Thromboplastin Time 27.9 SEC (24.5-34.5); Prothrombin Time 11.0 sec (9.3-11.8)
[2025-01-31 09:00] VITALS: BP 158/87; PULSE 74; RESP 16; TEMP 97.6; O2SAT 96
[2025-01-31 11:16] LABS: Alanine Aminotransferase 18 U/L (7-40); Albumin 3.4 g/dL (3.2-4.8); Alkaline Phosphatase 53 U/L (46-116); Anion Gap 6 (5-15); BUN/Creatinine Ratio 36.4 (10.0-20.0); Blood Urea Nitrogen 16 mg/dL (9-23); Calcium 8.8 mg/dL (8.7-10.4); Carbon Dioxide 29 mmol/L (20-31); Glucose 104 mg/dL (74-106); Sodium 142 mmol/L (136-145)
[2025-01-31 11:17] LABS: Bilirubin, Total 0.6 mg/dL (0.2-1.0)
[2025-01-31 11:19] LABS: Chloride 107 mmol/L (98-107); Potassium 3.1 mmol/L (3.5-5.1); Total Protein 5.2 g/dL (5.7-8.2)
[2025-01-31 12:07] LABS: Vitamin B1, Whole Blood 120.4 nmol/L (66.5-200.0)
--- NOTE | 2025-01-31 12:50 | DVHPN2 ---
Progress Note - Dictate Date Seen: Jan 31, 2025 Has the PT tested + for MRSA If YES, has PT been informed?: Yes Medical Necessity Reason Pt with a Central, PICC or Fol: No Subjective E: no major events o/n. no complaints. vital signs Vital Sign Date Time Temp Pulse Resp B/P (MAP) Pulse Ox O2 Delivery O2 Flow Rate FiO2 01/31/25 09:00 97.6 74 16 158/87 (110) 96 97.6 01/30/25 20:00 Room Air* 0 21 Total Intake and Output 01/30/25 01/30/25 01/31/25 15:00 23:00 07:00 Intake Total 50 ml 592 ml 400 ml Balance 50 ml 592 ml 400 ml medications Current Medications Medications Dose Ordered Sig/Cody Route Start Time Stop Time Status Last Admin Dose Admin Ondansetron HCl 4 mg Q4HP PRN IV 01/27/25 03:30 01/29/25 15:31 4 MG Hydralazine HCl 10 mg Q6HP PRN IV 01/27/25 03:30 01/30/25 09:04 10 MG Pantoprazole Sodium 40 mg DAILY IV 01/27/25 10:00 01/31/25 10:54 40 MG Ceftriaxone Sodium 50 ml @ 100 mls/hr DAILY@09 IV 01/27/25 09:00 01/31/25 10:54 100 MLS/HR Heparin Sodium (Porcine) 5,000 units Q12HR SC 01/27/25 10:00 01/31/25 10:55 5,000 UNITS Metronidazole 100 ml @ 100 mls/hr Q8HR IV 01/27/25 13:00 01/31/25 05:08 100 MLS/HR Morphine Sulfate 1 mg Q4HP PRN IV 01/28/25 09:45 01/30/25 11:18 1 MG Dextrose/Sodium Chloride 1,000 ml @ 100 mls/hr Q10H IV 01/29/25 07:00 01/30/25 13:34 100 MLS/HR Diagnostic Test (Pha) 1 strip Q6HR 01/30/25 00:00 01/31/25 11:11 1 STRIP Insulin Human Regular FOLLOW SLIDING SCALE Q6HR SC 01/30/25 00:00 01/31/25 05:09 4 UNITS Dextrose 50 ml UD IV 01/30/25 00:00 objective GEN: NAD ABD: soft. min TTP w/o G/R laboratory and microbiology Laboratory Tests 01/31/25 10:44 01/30/25 06:54 Test 01/31/25 10:44 Range/Units Serum Glucose 104 74-106 mg/dL Assessment/Plan A: 1. Resolved partial small bowel obstruction P: 1. surgery signing off. Dietary Evaluation Review Comments: 1) Advance diet as medically feasible 2) Consider TPN to meet at least 75% estimated Expected Outcomes/Goals: To meet >75% estimated needs Fu 2-3 days Plan discussed with: Patient, Daughter HANSA GARCIA MD Jan 31, 2025 12:50
[2025-01-31 13:00] VITALS: BP 161/66; PULSE 70; RESP 16; TEMP 98.1; O2SAT 95
--- NOTE | 2025-01-31 15:32 | DVHPNRES ---
Progress Note Date Seen: Jan 31, 2025 Resident Creating Document: MADI LIAO RESIDENT Has the PT tested + for MRSA If YES, has PT been informed?: Yes Medical Necessity Reason Pt with a Central, PICC or Fol: No Subjective Review of Systems 2024 Review of the systems: The patient was seen and examined at the bedside. Overnight events were reviewed. Patient denies any abdominal pain today patient was able to tolerate he he had diet yesterday without any nausea or vomiting. No chest pain fever shortness of breath or any other complaints today. Rest of the ROS is negative. Objective vital signs Vital Sign Date Time Temp Pulse Resp B/P (MAP) Pulse Ox O2 Delivery O2 Flow Rate FiO2 01/31/25 13:00 98.1 70 16 161/66 (97) 95 98.1 01/31/25 08:00 Room Air* 0 21 Total Intake and Output 01/30/25 01/30/25 01/31/25 15:00 23:00 07:00 Intake Total 50 ml 592 ml 400 ml Balance 50 ml 592 ml 400 ml medications Current Medications Medications Dose Ordered Sig/Cody Route Start Time Stop Time Status Last Admin Dose Admin Ondansetron HCl 4 mg Q4HP PRN IV 01/27/25 03:30 01/29/25 15:31 4 MG Hydralazine HCl 10 mg Q6HP PRN IV 01/27/25 03:30 01/30/25 09:04 10 MG Pantoprazole Sodium 40 mg DAILY IV 01/27/25 10:00 01/31/25 10:54 40 MG Ceftriaxone Sodium 50 ml @ 100 mls/hr DAILY@09 IV 01/27/25 09:00 01/31/25 10:54 100 MLS/HR Heparin Sodium (Porcine) 5,000 units Q12HR SC 01/27/25 10:00 01/31/25 10:55 5,000 UNITS Metronidazole 100 ml @ 100 mls/hr Q8HR IV 01/27/25 13:00 01/31/25 05:08 100 MLS/HR Morphine Sulfate 1 mg Q4HP PRN IV 01/28/25 09:45 01/30/25 11:18 1 MG Dextrose/Sodium Chloride 1,000 ml @ 100 mls/hr Q10H IV 01/29/25 07:00 01/30/25 13:34 100 MLS/HR Diagnostic Test (Pha) 1 strip Q6HR 01/30/25 00:00 01/31/25 11:11 1 STRIP Insulin Human Regular FOLLOW SLIDING SCALE Q6HR SC 01/30/25 00:00 01/31/25 05:09 4 UNITS Dextrose 50 ml UD IV 01/30/25 00:00 Examination Pt is lying on bed General Appearance: Alert, Oriented X3, Cooperative, Mild distress HEENT: Atraumatic, Mucous membranes moist/pink Respiratory: Clear to auscultation, Normal air movement, No added sounds Cardiovascular: Regular rate, Normal S1, Normal S2, No murmurs Abdominal/ : Active bowel sounds, Soft, no distention, no tenderness Extremities: No edema, Normal pulses, No tenderness/swelling Skin: No Significant rash, except past surgical scars Neuro: Normal speech, sensorimotor deficits none Psych/Mental Status: Mental status NL, Mood NL Nurse was there as cash accountant during examination laboratory and microbiology Laboratory Tests 01/31/25 10:44 01/30/25 06:54 Test 01/31/25 10:44 Range/Units Serum Glucose 104 74-106 mg/dL Microbiology Date/Time Source Procedure Growth Status 01/27/25 04:02 Blood Blood Culture - Preliminary NO GROWTH AFTER 72 HOURS OF INCUBATION. Resulted Labs and/or images reviewed: Labs reviewed by me, Image(s) reviewed by me Problem List/Assessment/Plan Problem List/Assessment/Plan # Intractable abdominal pain likely due to small bowel obstruction, rule out acute cholecystitis/pancreatitis/gastritis # Small-bowel obstruction # intractable nausea and vomiting -lipase 36 -CT abdomen pelvis revealed-Moderate small-bowel obstruction without clear identifiable transition point although possibly within the right hemiabdomen. -NPO until further order -continue IV normal saline as prescribed -continue iv ceftriaxone and iv metronidazole as prescribed -Small-bowel series Gastrografin:Indicates a possible bowel obstruction -Surgery consult : NG tube low continuous suction device,Gasrtrografin indicates a possible bowel obstruction.judging from physical examination there is no need for an emergency surgical intervention. will follow -ultrasound of the liver- Cholelithiasis with distended gallbladder. No sonographic evidence for acute cholecystitis. -nuclear HIDA scan: No evidence for acute cholecystitis. Chronic cholecystitis not excluded -nasogastric suction: Bowel gas pattern is unremarkable. Enteric tube projects over the right upper quadrant. Contrast is visualized in the small bowel. No definite evidence of contrast in the colon. The lung bases are unremarkable. No acute osseous abnormality identified. -x-ray KUB abdomen:Contrast is visualized in the small bowel. No definite evidence of contrast in the colon. -nursing education consultant advised to remove NG tube and to advance clear liquids, patient could tolerate clear liquid and subsequently was advanced to full liquid diet. -resolved partial small-bowel obstruction, as surgery consultation #Acute complicated cystitis -urinalysis revealed leukocyte esterase 3+, WBC 42 -continue IV antibiotic ceftriaxone -pending urine culture, blood culture #Uncontrolled hypertension -continue IV hydralazine PRN as prescribed -monitor blood pressure # Diabetes mellitus type 2 with hyperglycemia -hemoglobin A1c-7.2 -insulin NPO sliding scale # right renal nodule -follow up outpatient with primary care physician GI prophylaxis: Pantoprazole DVT prophylaxis: Heparin Diet: NPO followed by clear liquid. Goals of care discussed with the patient for more than 27 minutes: Full code status Case discussed with Dr. Rubi , patient and RN NPO until further order Goals of care, Code status full code; discussed with >15 minutes PUD prophylaxis: Pantoprazole DVT prophylaxis: Heparin Plan discussed with: Patient, Other (RN) Dietary Evaluation Review Comments: 1) Advance diet as medically feasible 2) Consider TPN to meet at least 75% estimated Expected Outcomes/Goals: To meet >75% estimated needs Fu 2-3 days Date of Service: Jan 31, 2025 Billing Provider: MONIK RUBI MD Common Visit Codes: [id number] INP/OBS CARE(HIGH) MADI LIAO RESIDENT Jan 31, 2025 15:32 MONIK RUBI MD Feb 01, 2025 09:37
[2025-01-31 20:00] VITALS: PULSE 72
[2025-01-31 21:00] VITALS: BP 144/65; PULSE 72; RESP 14; TEMP 98.7; O2SAT 97
[2025-02-01 01:00] VITALS: BP 135/72; PULSE 78; RESP 14; TEMP 98.2; O2SAT 98
[2025-02-01 05:00] VITALS: BP 138/72; PULSE 78; RESP 14; TEMP 98; O2SAT 97
[2025-02-01 06:20] LABS: Hematocrit 37.4 % (36.0-46.0); Hemoglobin 12.8 g/dL (12.2-16.2); Mean Corpuscular Hemoglobin 30.2 pg (28.0-32.0); Mean Corpuscular Volume 88.6 fL (80.0-100.0); Nucleated Red Blood Cells % 0.0 %
[2025-02-01 06:33] LABS: Anion Gap 10 (5-15); Calcium 9.2 mg/dL (8.7-10.4); Carbon Dioxide 28 mmol/L (20-31); Chloride 106 mmol/L (98-107); Sodium 144 mmol/L (136-145)
[2025-02-01 06:35] LABS: Potassium 2.9 mmol/L (3.5-5.1)
[2025-02-01 06:39] LABS: BUN/Creatinine Ratio 19.0 (10.0-20.0); Blood Urea Nitrogen 8 mg/dL (9-23); Glucose 96 mg/dL (74-106)
[2025-02-01 08:00] VITALS: PULSE 89; RESP 18; O2SAT 96
[2025-02-01 09:01] VITALS: BP 136/68; PULSE 89; RESP 18; TEMP 98.2; O2SAT 96
[2025-02-01] MEDS: POTASSIUM CHL 20 Meq TABLET PO SCH (10:15)
[2025-02-01] MEDS ORDERED: METR-344 PO (11:33)
[2025-02-01] MEDS ORDERED: CIPR-173 PO (11:33)
[2025-02-01] MEDS: MAGNESIUM SULFATE 1GM/100ML 100 ML IV SCH (12:30)
--- NOTE | 2025-02-01 13:02 | DVHDSRES ---
Discharge Summary Date of Admission Resident Creating Document: SEAN ALVAREZ RESIDENT Jan 27, 2025 at 03:17 Date of Discharge: Feb 01, 2025 Admitting Diagnosis Intractable abdominal pain likely due to small bowel obstruction, rule out acute cholecystitis/pancreatitis/gastritis Labs/Diagnostic Data: Laboratory Results Test 02/01/25 11:37 02/01/25 04:23 01/31/25 10:44 01/31/25 07:04 POC Glucose 208 mg/dl (70-106) White Blood Count 5.7 10^3/uL (4.4-10.8) Red Blood Count 4.22 10^6/uL (4.0-5.20) Hemoglobin 12.8 g/dL (12.2-16.2) Hematocrit 37.4 % (36.0-46.0) Mean Corpuscular Volume 88.6 fL (80.0-100.0) Mean Corpuscular Hemoglobin 30.2 pg (28.0-32.0) Mean Corpuscular Hemoglobin Concent 34.1 g/dL (32.0-36.0) Red Cell Distribution Width 13.8 % (11.8-14.3) Platelet Count 195 10^3/uL (140-450) Mean Platelet Volume 9.7 fL (6.9-10.8) Neutrophils (%) (Auto) 66.8 % (37.0-80.0) Lymphocytes (%) (Auto) 23.7 % (10.0-50.0) Monocytes (%) (Auto) 8.0 % (0.0-12.0) Eosinophils (%) (Auto) 1.2 % (0.0-7.0) Basophils (%) (Auto) 0.3 % (0.0-2.0) Neutrophils # (Auto) 3.8 10 ^3/uL (1.6-8.6) Lymphocytes # (Auto) 1.3 10 ^3/uL (0.4-5.4) Monocytes # (Auto) 0.5 10 ^3/uL (0-1.3) Eosinophils # (Auto) 0.1 10 ^3/uL (0-0.8) Basophils # (Auto) 0 10 ^3/uL (0-0.2) Nucleated Red Blood Cells 0.0 % Sodium Level 144 mmol/L (136-145) Potassium Level 2.9 mmol/L (3.5-5.1) Chloride Level 106 mmol/L (98-107) Carbon Dioxide Level 28 mmol/L (20-31) Anion Gap 10 (5-15) Blood Urea Nitrogen 8 mg/dL (9-23) Creatinine 0.42 mg/dL (0.550-1.02) Glomerular Filtration Rate Calc 98 mL/min (>90) BUN/Creatinine Ratio 19.0 (10.0-20.0) Serum Glucose 96 mg/dL (74-106) Calcium Level 9.2 mg/dL (8.7-10.4) Magnesium Level 1.5 mg/dL (1.6-2.6) Total Bilirubin 0.6 mg/dL (0.2-1.0) Aspartate Amino Transferase (AST) 38 U/L (13-40) Alanine Aminotransferase (ALT) 18 U/L (7-40) Alkaline Phosphatase 53 U/L (46-116) Total Protein 5.2 g/dL (5.7-8.2) Albumin 3.4 g/dL (3.2-4.8) Prothrombin Time 11.0 sec (9.3-11.8) Prothrombin Time INR 1.04 (0.9-1.15) Activated Partial Thromboplast Time 27.9 SEC (24.5-34.5) Test 01/30/25 06:54 01/29/25 15:12 01/28/25 05:14 01/27/25 08:54 Phosphorus Level 1.5 mg/dL (2.4-5.1) Carcinoembryonic Antigen 1.58 ng/mL (<=5.0) Direct Bilirubin 0.2 mg/dL (<0.3) Hepatitis B Surface Antigen Negative (Negative) Hepatitis C Antibody Negative (Negative) Lipase 43 U/L (12-53) Test 01/27/25 05:59 01/27/25 04:42 01/26/25 23:59 01/26/25 23:10 Lactic Acid Level 1.9 mmol/L (0.4-2.0) Vitamin B1 Level 120.4 nmol/L (66.5-200.0) Thyroid Stimulating Hormone (TSH) 2.12 uIU/mL (0.55-4.78) Urine Color Yellow (Yellow) Urine Clarity Clear (Clear) Urine pH 6.5 (5.0-9.0) Urine Specific [place] 1.036 (1.001-1.035) Urine Protein 1+ (Negative) Urine Ketones 2+ (Negative) Urine Blood Negative /uL (Negative) Urine Nitrite Negative (Negative) Urine Bilirubin Negative (Negative) Urine Urobilinogen Normal mg/dL (Negative) Urine Leukocyte Esterase 3+ /uL (Negative) Urine RBC 8 /hpf (0 - 4) Urine Microscopic WBC 42 /HPF (0-5) Urine Squamous Epithelial Cells Few /hpf (<5) Urine Bacteria None seen /hpf (None Seen) Urine Hyaline Casts Mod /lpf (0 - 2) Urine Mucus Few (None Seen) Urine Glucose 4+ mg/dL (Normal) Hemoglobin A1c 7.2 % A1C (<5.7) Vitamin D 25-Hydroxy 76.0 ng/mL (30.0-100) Folic Acid 31.95 ng/mL (>5.38) Other Laboratory Tests 02/01/25 04:23 Brief Hx & Hospital Course: Patient is 79 years old female with past medical history of hypertension, diabetes mellitus type 2 came with a complaint of abdominal pain. As per patient she has been having abdominal pain started 2 days before, gradual onset, burning, crampy, 10/10, intermittent, no aggravating factor. Patient also endorsed nausea and vomiting several times, watery, no blood. Patient reported she had bowel movement yesterday. On further inquiry patient also reported dysuria for last 2 days. Patient denied any fever, chest pain, shortness of breath, acute joint pain or swelling. Initial lab workup revealed leukocytosis with WBC 11.4, neutrophil 86.5, blood sugar 269, lipase 36, urinalysis revealed 3+ leukocyte esterase, WBC 42. CT abdomen and pelvis revealed- Moderate small- bowel obstruction without clear identifiable transition point although possibly within the right hemiabdomen. The gallbladder is contains calcified gallstones with question mild gallbladder wall thickening ; consider right upper quadrant ultrasound if there is concern for acute cholecystitis. Right adrenal gland nodule measuring 2.1 x 1.5 cm. Brief history of hospitalization: Patient had intractable abdominal pain likely due to small bowel obstruction, rule out acute cholecystitis / pancreatitis / gastritis. She had nausea and vomiting as well. Patient's lipase level was 36. A CT abdomen and pelvis revealed moderate small-bowel obstruction without clear identifiable transition point although possible within the right hemiabdomen. She was kept NPO and continued with IV normal saline as prescribed. We continued IV ceftriaxone and IV metronidazole and small bowel series with Gastrografin as one which indicated a possible bowel obstruction. Surgical consultation was done and a NG tube with low continuous suction device was placed. Judging from physical examination surgery consult so there was no need for emergency surgical intervention. ultrasound of the liver showed cholelithiasis without distended gallbladder no sonographic evidence for acute cholecystitis. Nuclear HIDA scan showed no evidence for acute cholecystitis. Chronic cholecystitis not excluded. NG suction was done bowel gas pattern is unremarkable. Enteric tube projects over the right upper quadrant. Contrast is visualized in the small bowel. No definite evidence of contrast in the colon. The lung bases are unremarkable. No acute osseous abnormality identified. X- ray KUB abdomen showed contrast is visualized the small bowel. No definite evidence of contrast in the colon. Surgical consult advised to remove NG tube and to advance clear liquids, patient was able to tolerate clear liquids and subsequently was advanced to full liquid diet. A surgery consultation patient had resolved partial small bowel obstruction. Patient is able to tolerate soft diet now. Acute complicated cystitis that was seen in urinalysis revealing leukocyte esterase 3+, WBC 42 we continued IV antibiotic ceftriaxone for the patient. We will also send out for urine and blood cultures. For patient's uncontrolled hypertension we continued IV hydralazine PRN and continued monitoring her blood pressure. For patient's diabetes mellitus type 2 with hypoglycemia and HBA1c 7.2 we continued insulin on a sliding scale. For right renal nodule we have asked her to follow up outpatient Primary care physician. Patient is now able to ambulate and has little abdominal pain. She is stable for discharge. We have repleted her low potassium and magnesium levels as well. Patient has also been counseled to continue her antibiotics ciprofloxacin and Flagyl. Pt is lying on bed General Appearance: Alert, Oriented X3, Cooperative, Mild distress HEENT: Atraumatic, Mucous membranes moist/pink Respiratory: Clear to auscultation, Normal air movement, No added sounds Cardiovascular: Regular rate, Normal S1, Normal S2, No murmurs Abdominal/ : Active bowel sounds, Soft, no distention, no tenderness Extremities: No edema, Normal pulses, No tenderness/swelling Skin: No Significant rash, except past surgical scars Neuro: Normal speech, sensorimotor deficits none Psych/Mental Status: Mental status NL, Mood NL Nurse was there as assignment desk editor during examination Operations or Procedures Exam: CT CT AB PEL WO CON-NO ORAL OR IV IMPRESSION: 1. Moderate small-bowel obstruction without clear identifiable transition point although possibly within the right hemiabdomen. 2. The gallbladder is contains calcified gallstones with question mild gallbladder wall thickening ; consider right upper quadrant ultrasound if there is concern for acute cholecystitis. 3. Right adrenal gland nodule measuring 2.1 x 1.5 cm. PROCEDURE(s): LIVUS - LIVER IMPRESSION: 1. Cholelithiasis with distended gallbladder. No sonographic evidence for acute cholecystitis. Correlate with clinical findings. 2. Additional findings as described above. CHEST RADIOGRAPH IMPRESSION: No acute disease; Enteric catheter as above. Procedure: XY SMALL BOWEL SERIES-W GASTROGRA FINDINGS/IMPRESSION: Initial station operator view of the abdomen and pelvis demonstrates dilated small bowel loops. At 5 hours after administration, contrast has not reached the colon, consistent with small-bowel obstruction. There is demineralization of the bones. There is no supine evidence of pneumoperitoneum. Examination: XY KUB ABDOMEN SINGLE VIEW IMPRESSION: Contrast is visualized in the small bowel. No definite evidence of contrast in the colon. EXAM: NM NM HIDA SCAN IMPRESSION: No evidence for acute cholecystitis. Chronic cholecystitis not excluded. CHEST RADIOGRAPH IMPRESSION: Nasogastric tube in satisfactory position. KUB - KUB ABDOMEN SINGLE VIEW IMPRESSION: Nonobstructive bowel gas pattern. Contrast seen in nondistended colon nasogastric tube tip in the stomach. Condition at Discharge: Stable Final Diagnosis/Problems List # Intractable abdominal pain likely due to small bowel obstruction, rule out acute cholecystitis/pancreatitis/gastritis # Small-bowel obstruction # intractable nausea and vomiting #Acute complicated cystitis #Uncontrolled hypertension # Diabetes mellitus type 2 with hyperglycemia # right renal nodule Discharge Disposition: Home Discharge Instruct/Medications Diet: Consistent carbohydrate, Cardiac 2g Na,low cholest Activity: No Restrictions, As Tolerated Follow Up/Referral: followup with pcp followup in discharge clinic in 7 days Medications: as per emr continue home medications Scheduled Ciprofloxacin Hcl (Cipro), 1 TAB PO BID Dapagliflozin Propanediol (Farxiga), 10 MG PO DAILY, (Reported) Duloxetine HCl (Duloxetine HCl), 30 MG PO DAILY, (Reported) Gabapentin (Gabapentin), 300 MG PO DAILY, (Reported) Losartan Potassium (Losartan Potassium), 50 MG PO DAILY, (Reported) Metformin Hydrochloride (Metformin Hcl), 1,000 MG PO IBID, (Reported) Metronidazole (Flagyl), 1 TAB PO TID Simvastatin (Simvastatin), 20 MG PO DAILY, (Reported) Discharge Statement: "Patient was advised to return to the ER or call 911 if any headaches, dizziness, shortness of breath, chest pain, abdominal pain, bleeding, fevers, or worsening of medical condition. Patient was counseled about treatment plan, medications, possible side effects, patientverbalized understanding. All questions were answered to the best of my ability. This discharge took greater then 30 minutes in planning, reviewing documentation, counseling the patient, and discussing with other team members." ASSESSMENT ASSESSMENT Assessment # Intractable abdominal pain likely due to small bowel obstruction, rule out acute cholecystitis/pancreatitis/gastritis # Small-bowel obstruction # intractable nausea and vomiting #Acute complicated cystitis #Uncontrolled hypertension # Diabetes mellitus type 2 with hyperglycemia # right renal nodule Date of Service: Feb 01, 2025 Billing Provider: MONIK HOLLAND MD Common Visit Codes: [id number] DISCH DAY >30min SEAN ALVAREZ RESIDENT Feb 01, 2025 13:02 MONIK HOLLAND MD Feb 02, 2025 11:25
[2025-02-01 13:17] VITALS: BP 141/67; PULSE 81; RESP 18; TEMP 97.9; O2SAT 97
== END 2025-02-01 16:45 | disposition home or self-care (01) | DRG 388 ==
LOC: EDBD 22:13 → ER 22:13 → OVERFLOW 01-27 03:17 → WEST WING 01-27 03:19 → ER 01-27 03:19 → WEST WING 01-27 21:28
PROVIDERS: ADMIT Internal Medicine; ATTEND Internal Medicine
PROC: 0D9670Z Drainage of Stomach with Drainage Device, Via Natural or Artificial Opening (ICD-10-PCS; principal; 2025-01-27)
DX: K56.600 Partial intestinal obstruction, unspecified as to cause (principal); K85.90 Acute pancreatitis without necrosis or infection, unspecified; N30.00 Acute cystitis without hematuria; R65.10 Systemic inflammatory response syndrome (SIRS) of non-infectious origin without acute organ dysfunction; K80.10 Calculus of gallbladder with chronic cholecystitis without obstruction; I10 Essential (primary) hypertension; E11.65 Type 2 diabetes mellitus with hyperglycemia; E27.8 Other specified disorders of adrenal gland; K82.8 Other specified diseases of gallbladder; K29.70 Gastritis, unspecified, without bleeding; Z88.0 Allergy status to penicillin; Z79.899 Other long term (current) drug therapy
CPT/HCPCS: 36415; 71045; 74018; 74176; 74250; 76705; 78226; 80048; 80053; 80076; 81001; 82306; 82378; 82746; 82962; 83036; 83605; 83690; 83735; 84100; 84425; 84443; 85025; 85610; 85730; 86803; 87040; 87340; 96365; 96375; 97110; 97116; 97163; 97530; G0378; J1815; J1885; J2405; J2470; J3480; J3490; J7042

== ENCOUNTER → 2025-04-10 | Outpatient (CLI) | payer MEDICARE, MEDICAID ==
[~2025-04-10] MED LIST: CIPR-173 PO; DAPA1TAB4 PO; DULO1CAP5 PO; GABA-1250 PO; LOSA-534 PO; METF-370 PO; METR-344 PO; SIMV20TA20 PO
[2025-04-10 15:14] LABS: Hematocrit 41.9 % (36.0-46.0); Hemoglobin 14.0 g/dL (12.2-16.2); Mean Corpuscular Hemoglobin 30.7 pg (28.0-32.0); Mean Corpuscular Volume 92.3 fL (80.0-100.0); Nucleated Red Blood Cells % 0.1 %
[2025-04-10 15:32] LABS: Alanine Aminotransferase 16 U/L (7-40); Albumin 4.5 g/dL (3.2-4.8); Alkaline Phosphatase 108 U/L (46-116); Anion Gap 13 (5-15); BUN/Creatinine Ratio 23.2 (10.0-20.0); Blood Urea Nitrogen 13 mg/dL (9-23); Calcium 10.1 mg/dL (8.7-10.4); Carbon Dioxide 27 mmol/L (20-31); Chloride 102 mmol/L (98-107); Potassium 4.6 mmol/L (3.5-5.1); Sodium 142 mmol/L (136-145); Total Protein 7.5 g/dL (5.7-8.2)
[2025-04-10 15:33] LABS: Bilirubin, Total 0.3 mg/dL (0.2-1.0)
[2025-04-10 15:36] LABS: Free T4 (Free Thyroxine) 0.76 ng/dL (0.89-1.76)
[2025-04-10 15:37] LABS: Glucose 132 mg/dL (74-106)
== END | disposition home or self-care (01) ==
LOC: LAB 14:41
PROVIDERS: ATTEND Internal Medicine
DX: I10 Essential (primary) hypertension (principal); E11.21 Type 2 diabetes mellitus with diabetic nephropathy; E78.5 Hyperlipidemia, unspecified; F03.90 Unspecified dementia, unspecified severity, without behavioral disturbance, psychotic disturbance, mood disturbance, and anxiety; Z79.899 Other long term (current) drug therapy
CPT/HCPCS: 36415; 80053; 82306; 82607; 83036; 84439; 84443; 85025

== ENCOUNTER 2025-06-03 12:46 | Outpatient (CLI) | payer MEDICARE, MEDICAID ==
[2025-06-03 13:45] LABS: Chloride 102 mmol/L (98-107); Potassium 4.6 mmol/L (3.5-5.1); Sodium 142 mmol/L (136-145)
[2025-06-03 13:46] LABS: Anion Gap 10 (5-15); Calcium 9.9 mg/dL (8.7-10.4); Carbon Dioxide 30 mmol/L (20-31)
[2025-06-03 13:51] LABS: BUN/Creatinine Ratio 44.3 (10.0-20.0)
[2025-06-03 13:53] LABS: Blood Urea Nitrogen 27 mg/dL (9-23); Glucose 193 mg/dL (74-106)
== END 2025-06-03 17:00 | disposition home or self-care (01) ==
LOC: LAB 12:46
PROVIDERS: ATTEND Internal Medicine
DX: I10 Essential (primary) hypertension (principal); E78.5 Hyperlipidemia, unspecified
CPT/HCPCS: 36415; 80048